=== PATIENT | female | born 1995 | race Caucasian/White ===

== ENCOUNTER 2019-09-23 20:54 | Emergency (ER) | payer OTHER, SELFPAY ==
[2019-09-23 20:58] VITALS: BP 114/84; PULSE 78; RESP 18; TEMP 37.2; O2SAT 100; BMI 21.9
[2019-09-23] MEDS: sodium chloride 0.9% 1,000 ML 100 ML IV (21:19)
[2019-09-23] MEDS: ondansetron 2 mg/ML SDV 2 mL 4 MG IVP (21:19)
[2019-09-23 21:20] VITALS: RESP 18; O2SAT 99
[2019-09-23] MEDS: morphine 4 mg/mL SDV 1 mL IVP (21:20)
--- NOTE | 2019-09-23 21:24 | ED_ITS ---
HPI - Abdominal Pain General: Chief Complaint: Abdominal Pain Stated Complaint: LOWER ABD PAIN Time Seen by Provider: 09/23/19 21:01 Source: patient Mode of arrival: ambulatory Limitations: no limitations History of Present Illness: HPI narrative: Patient is a 24-year-old female who presents to ED today with complaints of right-sided abdominal pain. Patient tells me pain began very abruptly in her right side and seems to radiate to her right flank. Patient tells me she had taken a test earlier today and it was positive. Patient states LMP was approximately 3 to 4 weeks ago. She reports having a small amount of brown discharge but no bleeding. She does not describe the pain as low in her pelvis. No cramping sensations. She states she did have 2 episodes of diarrhea. She is having nausea without vomiting. MD elicited complaint: abdominal pain Pertinent past history: none Onset (ago): hour(s) Pain Consistency: constant Location: R flank and Other (R abdomen) Severity: moderate Quality: stabbing and sharp Migration to: R flank Exacerbating factors: nothing Relieving factors: nothing Associated Symptoms: Reports diarrhea and nausea; Denies chills, coffee ground emesis, dysuria, fever(s), heartburn, hematochezia, hematemesis, melena, syncope and vomiting Review of Systems Const: Denies: fever, chills, body aches, fatigue or malaise Eyes: Denies: change in vision or blurry vision Card: Denies: chest pain, palpitations, irregular heart rhythm, lightheadedness, syncope or shortness of breath on exertion Resp: Denies: shortness of breath, productive cough or pain on inspiration GI: Reports: abdominal pain, nausea and diarrhea; Denies: vomiting, vomiting blood, coffee grounds in vomit, difficulty swallowing, heartburn/indigestion, blood in stool, black tarry stool, mucus in stool, white/light colored stool or fatty stool : Reports: flank pain and vaginal discharge (brown discharge); Denies: difficulty urinating, painful urination, urinary frequency, urinary urgency, urinary hesitancy, genital lesion, genital itching, vaginal odor or pelvic pain Musc: Reports: back pain (R flank); Denies: neck pain or joint pain Skin/Breast: Denies: rash Neuro: Denies: headache, numbness in extremities, weakness in extremities or changes in sensation PFSH ED PFSH: Social History Smoking and tobacco status: former smoker Alcohol intake: never Physical Exam Const: COMMON NORMALS: average body habitus, oriented x3, no limitations, healthy appearing, alert and well nourished GENERAL APPEARANCE: in distress (appears uncomfortable) HENMT: COMMON NORMALS: normocephalic and head/scalp atraumatic HEAD & SCALP: normocephalic and atraumatic Resp: COMMON NORMALS: normal respiratory effort and clear to auscultation bilaterally AUSCULTATION: clear to auscultation bilaterally Cardio: COMMON NORMALS: regular rate and regular rhythm RATE: regular rate RHYTHM: regular rhythm GI: COMMON NORMALS: normal to inspection, nondistended, normoactive bowel sounds, soft to palpation, no hepatosplenomegaly and no masses AUSCULTATION: Yes normoactive bowel sounds PALPATION: Yes soft, Yes tender (R sided (between RUQ, RLQ); R flank pain) and Yes no hepatosplenomegaly : BLADDER/KIDNEY EXAM: Yes CVA tenderness on the right OTHER: she has no pain with palpation of her lower abdomen/pelvis Back/Pelvis: GENERAL BACK: Yes CVA tenderness Extremity: COMMON NORMALS: normal to inspection Neuro: COMMON NORMALS: oriented x3 SENSORIUM/ORIENTATION: Yes alert Skin: COMMON NORMALS: no rashes or lesions noted GENERAL SKIN EXAM: no rashes or lesions noted Course Vital Signs: Vital signs: Vital Signs Temperature 98.9 F 09/23/19 20:58 Pulse Rate 76 09/23/19 22:19 Respiratory Rate 16 09/23/19 22:19 Blood Pressure 112/64 09/23/19 22:19 Pulse Oximetry 100 09/23/19 22:19 MDM - Abdominal Pain MDM Narrative: Medical decision making narrative: Patient's physical exam is positive for pain about her right flank region and right abdomen. She is not having any lower abdominal or pelvic pain at this time. She does complain of a little bit of brown discharge. Patient was cathed for urine which shows no infection but does have hematuria which would be consistent with a nephro or ureterolithiasis which is what I suspect patient has. On her ultrasound there was no right-sided hydronephrosis. The remainder of her abdominal ultrasound was normal. is confirmed today. hCG is slightly over 200 corresponding to a 3 to 4-week gestation. Patient is too early to see anything via ultrasound. I will repeat patient's hCG in 48 hours via outpatient lab work. Case management was contacted to set patient up with the women's health clinic. Strict return to ED precautions given worsening pain or fevers. She was given urinary strainer. I did explain to patient that an ectopic could not definitively be ruled out although this is low on my differential based on her exam. Discussed signs and symptoms that would prompt a return to ED visit. Lab Data: Labs: Lab Results 09/23/19 09/23/19 09/23/19 Range/Units 21:10 21:15 21:15 WBC 7.5 (4.0-10.0) 10^3/ uL RBC 4.68 (4.1-5.3) 10^6/u L Hgb 13.9 (11.5-15.3) g/dL Hct 41.6 (37.0-47.0) % MCV 88.9 (81-99) fL MCH 29.7 (28.0-34.0) pg MCHC 33.4 (30.0-36.0) g/dL RDW 11.9 L (12.1-15.1) % Plt Count 166 (130-400) 10^3/c mm MPV 13.1 H (7.4-10.4) fL Neut % (Auto) 69.9 % Lymph % (Auto) 23.7 % [place] % (Auto) 4.1 % Eos % (Auto) 1.5 % Baso % (Auto) 0.5 % Neut # (Auto) 5.3 (1.8-7.7) 10^3/u L Lymph # (Auto) 1.8 (0.8-4.8) 10^3/u L [place] # (Auto) 0.3 (0.2-0.9) 10^3/u L Eos # (Auto) 0.1 (0.0-0.8) 10^3/u L Baso # (Auto) 0.0 (0.0-0.1) 10^3/u L Nucleated RBC % (a uto) 0 % Nucleated RBCs # 0.0 /100WBC Sodium 138 (136-145) mmol/L Potassium 3.9 (3.5-5.1) mmol/L Chloride 102 (98-107) mmol/L Carbon Dioxide 22 (22-29) mmol/L Anion Gap 17.9 (5-19) BUN 7 (6-20) mg/dL Creatinine 0.6 (0.5-0.9) mg/dL GFR Calculation 122.8 (90-130) mL/min Glucose 103 (65-115) mg/dL Calculated Osmolal ity 282 L (285-295) mOsm/k g Calcium 10.1 (8.5-10.5) mg/dL Magnesium 2.4 H (1.7-2.3) mg/dL Total Bilirubin 1.9 H (0.15-1.2) mg/dL AST 18 (0-32) U/L ALT 9 (0-33) U/L Alkaline Phosphata se 58 (35-105) IU/L Total Protein 8.0 (6.6-8.7) g/dL Albumin 5.1 (3.5-5.2) g/dL Globulin 2.9 (1.3-4.6) g/dL Lipase 57 (13-60) U/L HCG, Qual (Negative) Ser , Kristie i-Qnt mIU/mL Urine Color Cancelled Urine Appearance Cancelled Urine pH Cancelled Ur Specific Gravit y Cancelled Urine Protein Cancelled Urine Glucose (UA) Cancelled Urine Ketones Cancelled Urine Blood Cancelled Urine Nitrate Cancelled Urine Bilirubin Cancelled Prot Sulfosalicyli c Acd Cancelled Urine Urobilinogen Cancelled Ur Leukocyte Danelle ase Cancelled Urine RBC Cancelled Urine WBC Cancelled Ur Squamous Epith Cells Cancelled Ur Transition Epit h Cell Cancelled Ur Renal Epithelia l Cell Cancelled Calcium Oxalate Cr ystal Cancelled Uric Acid Crystals Cancelled Triple Phos Shruthi ls Cancelled Other Crystals Cancelled Amorphous Sediment Cancelled Urine Bacteria Cancelled Hyaline Casts Cancelled Fine Granular Cast s Cancelled Coarse Granular Ca sts Cancelled RBC Casts Cancelled Other Casts Cancelled Urine Mucus Cancelled Urine Trichomonas Cancelled Urine Yeast Cancelled Urine Sperm Cancelled Ur Oval Fat Bodies Cancelled 09/23/19 09/23/19 09/23/19 Range/Units 21:15 21:15 21:45 WBC (4.0-10.0) 10^3/ uL RBC (4.1-5.3) 10^6/u L Hgb (11.5-15.3) g/dL Hct (37.0-47.0) % MCV (81-99) fL MCH (28.0-34.0) pg MCHC (30.0-36.0) g/dL RDW (12.1-15.1) % Plt Count (130-400) 10^3/c mm MPV (7.4-10.4) fL Neut % (Auto) % Lymph % (Auto) % [place] % (Auto) % Eos % (Auto) % Baso % (Auto) % Neut # (Auto) (1.8-7.7) 10^3/u L Lymph # (Auto) (0.8-4.8) 10^3/u L [place] # (Auto) (0.2-0.9) 10^3/u L Eos # (Auto) (0.0-0.8) 10^3/u L Baso # (Auto) (0.0-0.1) 10^3/u L Nucleated RBC % (a uto) % Nucleated RBCs # /100WBC Sodium (136-145) mmol/L Potassium (3.5-5.1) mmol/L Chloride (98-107) mmol/L Carbon Dioxide (22-29) mmol/L Anion Gap (5-19) BUN (6-20) mg/dL Creatinine (0.5-0.9) mg/dL GFR Calculation (90-130) mL/min Glucose (65-115) mg/dL Calculated Osmolal ity (285-295) mOsm/k g Calcium (8.5-10.5) mg/dL Magnesium (1.7-2.3) mg/dL Total Bilirubin (0.15-1.2) mg/dL AST (0-32) U/L ALT (0-33) U/L Alkaline Phosphata se (35-105) IU/L Total Protein (6.6-8.7) g/dL Albumin (3.5-5.2) g/dL Globulin (1.3-4.6) g/dL Lipase (13-60) U/L HCG, Qual Positive H (Negative) Ser , Kristie i-Qnt 261.90 mIU/mL Urine Color Colorless Urine Appearance Sl hazy Urine pH 7 Ur Specific Gravit y 1.010 Urine Protein Neg Urine Glucose (UA) Norm Urine Ketones Negative Urine Blood 2+ H Urine Nitrate Negative Urine Bilirubin Neg Prot Sulfosalicyli c Acd Urine Urobilinogen Norm Ur Leukocyte Danelle ase Negative Urine RBC Rare Urine WBC Rare Ur Squamous Epith Cells Rare Ur Transition Epit h Cell Ur Renal Epithelia l Cell Calcium Oxalate Cr ystal Uric Acid Crystals Triple Phos Shruthi ls Other Crystals Amorphous Sediment Urine Bacteria Trace Hyaline Casts Fine Granular Cast s Coarse Granular Ca sts RBC Casts Other Casts Urine Mucus Urine Trichomonas Urine Yeast Urine Sperm Ur Oval Fat Bodies Imaging Data ^: US abdomen : My impression: 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, normal gallbladder, remainder of pts abdomen appears normal; too early to detect anything at this time Discharge Plan Discharge Patient Disposition: Home, Self-Care Clinical Impression: Ureterolithiasis during in first trimester Qualifiers: Weeks of gestation: less than 8 weeks Qualified Code(s): Z3A.01 - Less than 8 weeks gestation of Condition: Stable Prescriptions: No Action No Known Home Medications RF: 0 Discharge Orders: Discharge Order (Routine); Ordered 09/23/19 Ordered By: Emani Reyes Referrals: Dionicio Mohamud DO [Family Provider] - Lexi Nichols FNP [Primary Care Provider] - Activity Restrictions/Additional Instructions: As discussed you may strain your urine in hopes of catching the probable kidney stone. You need to return to the emergency department for worsening or uncontrollable pain, severe lower abdominal/pelvic cramping, vaginal bleeding, fevers greater than 100.4, or any other concerns you may have. We will have case management work on getting you an appointment with the women's health clinic. I have written you outpatient orders for repeat hCG in 48 hours. Coding Level of Care Code ED Flight Steward for Chg Fwd Exam Comprehensive
[2019-09-23 21:26] LABS: Basophils % 0.5 %; Eosinophils # 0.1 10^3/uL (0.0-0.8); Eosinophils % 1.5 %; Hematocrit 41.6 % (37.0-47.0); Hemoglobin 13.9 g/dL (11.5-15.3); Lymphocytes # 1.8 10^3/uL (0.8-4.8); Lymphocytes % 23.7 %; Mean Corpuscular HGB Conc 33.4 g/dL (30.0-36.0); Mean Corpuscular Hemoglobin 29.7 pg (28.0-34.0); Mean Corpuscular Volume 88.9 fL (81-99); Mean Platelet Volume 13.1 fL (7.4-10.4); Monocytes # 0.3 10^3/uL (0.2-0.9); Monocytes % 4.1 %; Neutrophils # 5.3 10^3/uL (1.8-7.7); Neutrophils % 69.9 %; Nucleated Red Blood Cells % 0 %; Platelet Count 166 10^3/cmm (130-400); Red Blood Count 4.68 10^6/uL (4.1-5.3); Red Cell Distribution Width 11.9 % (12.1-15.1); White Blood Count 7.5 10^3/uL (4.0-10.0)
[2019-09-23 21:47] VITALS: BP 107/72; PULSE 72; RESP 16; O2SAT 100
[2019-09-23 21:47] LABS: HCG, Serum Qual Positive (Negative)
[2019-09-23 21:48] LABS: Alanine Aminotransferase 9 U/L (0-33); Albumin Level 5.1 g/dL (3.5-5.2); Alkaline Phosphatase 58 IU/L (35-105); Anion Gap 17.9 (5-19); Aspartate Amino Transferase 18 U/L (0-32); Blood Urea Nitrogen 7 mg/dL (6-20); Calcium 10.1 mg/dL (8.5-10.5); Carbon Dioxide 22 mmol/L (22-29); Chloride 102 mmol/L (98-107); Globulin 2.9 g/dL (1.3-4.6); Glomerular Filtration Rate 122.8 mL/min (90-130); Glucose 103 mg/dL (65-115); Lipase 57 U/L (13-60); Magnesium 2.4 mg/dL (1.7-2.3); Osmolality Calculated 282 mOsm/kg (285-295); Potassium 3.9 mmol/L (3.5-5.1); Sodium 138 mmol/L (136-145); Total Bilirubin 1.9 mg/dL (0.15-1.2)
--- NOTE | 2019-09-23 22:17 | US_ITS ---
WS: [id number] ABDOMINAL ULTRASOUND REASON FOR EXAM: R sided abdominal pain; possible kidney stone; pt TECHNIQUE: Grayscale and Doppler ultrasound examination of the abdomen. FINDINGS: Pancreas: Within normal limits. Abdominal aorta and IVC: Within normal limits. Liver: Liver measures 9.6 cm in length. Normal hepatopedal flow Gallbladder: Gallbladder wall thickness measures 0.1 cm. No stones Left kidney: Left kidney measures 10.8 cm x 5.0 cm x 4.2 cm. No hydronephrosis or stones. Right kidney: Right kidney measures 10.4 cm x 3.9 cm x 3.7 cm. No hydronephrosis or stones. Spleen: Spleen measures 12.3 centimeters US/US abdomen complete* [id number] IMPRESSION: Normal right upper quadrant ultrasound and normal abdominal survey.
[2019-09-23 22:19] VITALS: BP 112/64; PULSE 76; RESP 16; O2SAT 100
[2019-09-23 22:53] LABS: Slide Review Slide Review Perform
[2019-09-23 23:16] LABS: Add Urine Microscopic? YES; Bilirubin Urine Neg (NEGATIVE); Blood Urine 2+ (Negative); Glucose Urine UA Norm (Normal); Ketones Urine Negative (Negative); Leukocyte Esterase Urine Negative (Negative); Nitrate Urine Negative (Negative); Protein Urine Neg (Negative); Urine Appearance SL Hazy (CLEAR); Urine Color Colorless (Yellow); Urobilinogen Urine Norm (Negative); pH Urine 7 (5-7)
[2019-09-23 23:17] LABS: Bacteria Urine TRACE; RBC Urine RARE /hpf (0-2); Squamous Epithelial Cell Urine RARE (0-5); WBC Urine RARE /hpf (0-5)
[2019-09-24] MEDS: metoclopramide 10 mg Tablet 5 MG PO (00:09)
[2019-09-24] MEDS: HYDROcodone-acetaminophen 5-325 mg Tablet 2 TAB PO (00:09)
[2019-09-24 00:15] VITALS: BP 122/68; PULSE 68; RESP 16; O2SAT 99
--- NOTE | 2019-09-24 13:15 | DCPLANNER ---
communications station manager had message to schedule a follow up appointment for patient with [facility]. communications station manager called [facility], spoke with Estela, gave clinic patients information. communications station manager was told that patients information would be printed and reviewed. Clinic will call heel caser and patient with appointment information.
--- NOTE | 2019-09-26 12:36 | DCPLANNER ---
Patient had a follow up appointment for labs scheduled for 09.26.19, and patient did attend the appointment for lab. A follow up appointment will be scheduled by clinic, and clinic will call patient with appointment information.
== END 2019-09-24 00:19 | disposition home or self-care (01) ==
PROVIDERS: Emergency Medicine; Emergency Provider Physician Assistant; Family Provider Electrodiagnostic Medicine; PCP Nurse Practitioner Family
DX: O26.891 Other specified pregnancy related conditions, first trimester (principal); N20.1 Calculus of ureter; Z3A.01 Less than 8 weeks gestation of pregnancy; Z87.891 Personal history of nicotine dependence
CPT/HCPCS: 12345; 51701; 76700; 80053; 81001; 83690; 83735; 84702; 84703; 85025; 96360; 96361; 96374; 96375; 99283; J2270; J2405; J7030; J8597

== ENCOUNTER → 2019-09-26 10:20 | Outpatient (BNVA) | payer OTHER, SELFPAY | PROVIDERS: Family Provider Electrodiagnostic Medicine; PCP Nurse Practitioner Family; Visit Provider Obstetrics & Gynecology | DX: Z34.90 Encounter for supervision of normal pregnancy, unspecified, unspecified trimester (principal) | CPT/HCPCS: 84702 ==

== ENCOUNTER → 2019-09-30 09:09 | Outpatient (BNVA) | payer OTHER, SELFPAY | PROVIDERS: Family Provider Electrodiagnostic Medicine; PCP Nurse Practitioner Family; Visit Provider Obstetrics & Gynecology | DX: O20.0 Threatened abortion (principal) | CPT/HCPCS: 84702 ==

== ENCOUNTER → 2019-10-02 09:37 | Outpatient (BNVA) | payer OTHER, SELFPAY | PROVIDERS: Family Provider Electrodiagnostic Medicine; PCP Nurse Practitioner Family; Visit Provider Obstetrics & Gynecology | DX: O20.0 Threatened abortion (principal) | CPT/HCPCS: 76817; 84702 ==

== ENCOUNTER → 2019-10-03 15:02 | Outpatient (BNVA) | payer OTHER, SELFPAY | PROVIDERS: Family Provider Electrodiagnostic Medicine; PCP Nurse Practitioner Family; Visit Provider Obstetrics & Gynecology | DX: O20.0 Threatened abortion (principal) | CPT/HCPCS: 84702; 85027 ==

== ENCOUNTER → 2019-10-07 08:05 | Outpatient (BNVA) | payer OTHER, SELFPAY | PROVIDERS: Family Provider Electrodiagnostic Medicine; PCP Nurse Practitioner Family; Visit Provider Obstetrics & Gynecology | DX: O20.0 Threatened abortion (principal) | CPT/HCPCS: 84702 ==

== ENCOUNTER → 2019-10-09 08:59 | Outpatient (BNVA) | payer OTHER, SELFPAY | PROVIDERS: Family Provider Electrodiagnostic Medicine; PCP Nurse Practitioner Family; Visit Provider Obstetrics & Gynecology | DX: O20.0 Threatened abortion (principal) | CPT/HCPCS: 84702 ==

== ENCOUNTER → 2019-10-11 08:03 | Outpatient (BNVA) | payer OTHER, SELFPAY | PROVIDERS: Family Provider Electrodiagnostic Medicine; PCP Nurse Practitioner Family; Visit Provider Obstetrics & Gynecology | DX: O20.0 Threatened abortion (principal) | CPT/HCPCS: 76817; 84702 ==

== ENCOUNTER → 2019-10-18 08:20 | Outpatient (BNVA) | payer OTHER, SELFPAY | PROVIDERS: Family Provider Electrodiagnostic Medicine; PCP Nurse Practitioner Family; Visit Provider Obstetrics & Gynecology | DX: O20.0 Threatened abortion (principal) | CPT/HCPCS: 84702 ==

== ENCOUNTER → 2019-11-07 12:51 | Outpatient (BNVA) | payer OTHER, SELFPAY | PROVIDERS: Family Provider Electrodiagnostic Medicine; PCP Nurse Practitioner Family; Visit Provider Obstetrics & Gynecology | DX: Z30.017 Encounter for initial prescription of implantable subdermal contraceptive | CPT/HCPCS: 81025 ==

== ENCOUNTER → 2020-01-16 12:34 | Outpatient (BNVA) | payer OTHER, SELFPAY | PROVIDERS: Family Provider Electrodiagnostic Medicine; PCP Nurse Practitioner Family; Visit Provider Obstetrics & Gynecology | DX: R87.610 Atypical squamous cells of undetermined significance on cytologic smear of cervix (ASC-US) (principal) | CPT/HCPCS: 81025; 88305 ==

== ENCOUNTER → 2020-04-06 10:31 | Outpatient (BNVA) | payer OTHER, SELFPAY | PROVIDERS: Family Provider Electrodiagnostic Medicine; PCP Nurse Practitioner Family; Visit Provider Nurse Practitioner Family | DX: Z20.828 Contact with and (suspected) exposure to other viral communicable diseases (principal) | CPT/HCPCS: 87635 ==

== ENCOUNTER 2020-06-15 13:01 | Emergency (ER) | payer OTHER, SELFPAY ==
[2020-06-15 13:35] VITALS: BP 115/73; PULSE 64; RESP 14; TEMP 36.6; O2SAT 99; BMI 20.3
--- NOTE | 2020-06-15 14:33 | ED_ITS ---
Documented by User: SEGUNDO Ricks 06/15/20 14:34 HPI - Abdominal Pain General: Chief Complaint: Abdominal Pain Stated Complaint: N/V 4 DAYS, CANNOT EAT OR DRINK Time Seen by Provider: 06/15/20 14:21 History of Present Illness: HPI narrative: Patient have abdominal pain and vomiting after eating occurs about 30 minutes an hour after eating this is gone on for the last 4 days. MD elicited complaint: abdominal pain Onset (ago): day(s) Pain Consistency: constant Quality: cramping, stabbing and aching Radiation: RUQ Exacerbating factors: eating Associated Symptoms: Reports nausea and vomiting; Denies chills and fever(s) Review of Systems Const: Denies: fever(s), chills or body aches Eyes: Denies: change in vision or blurry vision ENMT: Denies: throat pain or nasal congestion Card: Denies: chest pain or dyspnea on exertion Resp: Denies: dyspnea, productive cough or non-productive cough GI: Reports: abdominal pain, nausea and vomiting Musc: Denies: extremity pain Skin/Breast: Denies: rash Neuro: Denies: headache(s) Psych: Denies: anxiety or depression Alexis/Lymph: Denies: easy bruising PFSH ED PFSH: Medical History Atypical squamous cells of undetermined significance (ASCUS) on Papanicolaou smear of cervix Family History Family/Other Breast cancer, Onset Age: 50 maternal great aunt Colon cancer maternal great uncle Diabetes paternal Hypertension maternal aunt Thyroid cancer paternal uncle Father Stroke Heart disease Hypertension Grandfather Heart disease paternal Diabetes paternal Hypertension maternal Grandmother Hypertension maternal Social History Smoking and tobacco status: former smoker Quit status (tobacco): has quit using tobacco Year quit tobacco: 08/2019 Alcohol intake: current Alcohol intake frequency: holidays/special occasions only Alcohol type: beer Other details last substance use: not since finding out she is Physical Exam Const: COMMON NORMALS: no acute distress, average body habitus and patient oriented x3 HENMT: COMMON NORMALS: normocephalic HEAD & SCALP: normal to inspection and normocephalic FACE & SINUS: normal facial exam Eye: COMMON NORMALS: conjunctivae normal GENERAL EYE: appearance normal, both eyes and all related structures CONJUNCTIVA: Yes conjunctivae normal Neck/C-Spine: COMMON NORMALS: no JVD Chest: COMMONS NORMALS: normal inspection of the chest Resp: COMMON NORMALS: normal respiratory effort and clear to auscultation bilaterally AUSCULTATION: clear to auscultation bilaterally Cardio: COMMON NORMALS: no JVD, regular rate and regular rhythm RATE: regular rate RHYTHM: regular rhythm GI: COMMON NORMALS: Normal to inspection, nondistended, normoactive bowel sounds present PALPATION: Yes Tenderness to palpation present (GI) Details: RUQ Extremity: COMMON NORMALS: normal to inspection and full ROM Neuro: COMMON NORMALS: patient oriented x3 Course Vital Signs: Vital signs: Vital Signs Temperature 97.9 F 06/15/20 13:35 Pulse Rate 66 06/15/20 18:47 Respiratory Rate 14 06/15/20 18:47 Blood Pressure 112/67 06/15/20 18:47 Pulse Oximetry 99 06/15/20 18:47 MDM - Abdominal Pain Lab Data: Labs: Lab Results 06/15/20 06/15/20 06/15/20 Range/Units 14:35 14:35 14:41 WBC 4.7 (4.0-10.0) 10^3/ uL RBC 4.28 (4.1-5.3) 10^6/u L Hgb 12.8 (11.5-15.3) g/dL Hct 39.0 (37.0-47.0) % MCV 91.1 (81-99) fL MCH 29.9 (28.0-34.0) pg MCHC 32.8 (30.0-36.0) g/dL RDW 12.2 (12.1-15.1) % Plt Count 140 (130-400) 10^3/c mm MPV 12.5 H (7.4-10.4) fL Neut % (Auto) 53.9 % Lymph % (Auto) 39.1 % [place] % (Auto) 4.7 % Eos % (Auto) 1.5 % Baso % (Auto) 0.6 % Neut # (Auto) 2.54 (1.8-7.7) 10^3/u L Lymph # (Auto) 1.8 (0.8-4.8) 10^3/u L [place] # (Auto) 0.2 (0.2-0.9) 10^3/u L Eos # (Auto) 0.1 (0.0-0.8) 10^3/u L Baso # (Auto) 0.0 (0.0-0.1) 10^3/u L Nucleated RBC % (a uto) 0 % Nucleated RBCs # 0.0 /100WBC Sodium (136-145) mmol/L Potassium (3.5-5.1) mmol/L Chloride (98-107) mmol/L Carbon Dioxide (22-29) mmol/L Anion Gap (5-19) BUN (6-20) mg/dL Creatinine (0.5-0.9) mg/dL GFR Calculation (90-130) mL/min Glucose (65-115) mg/dL Calculated Osmolal ity (285-295) mOsm/k g Calcium (8.5-10.5) mg/dL Total Bilirubin (0.15-1.2) mg/dL AST (0-32) U/L ALT (0-33) U/L Alkaline Phosphata se (35-105) IU/L Total Protein (6.6-8.7) g/dL Albumin (3.5-5.2) g/dL Globulin (1.3-4.6) g/dL Lipase (13-60) U/L HCG, Qual Negative (Negative) Urine Color Yellow (Yellow) Urine Appearance Clear (CLEAR) Urine pH 5 (5-7) Ur Specific Gravit y 1.025 (1.005-1.030) Urine Protein Neg (Negative) Urine Glucose (UA) Norm (Normal) Urine Ketones Negative (Negative) Urine Blood Neg (Negative) Urine Nitrate Negative (Negative) Urine Bilirubin Neg (Negative) Urine Urobilinogen 4 H (Negative) mg/dL Ur Leukocyte Danelle ase Negative (Negative) 06/15/20 Range/Units 14:41 WBC (4.0-10.0) 10^3/ uL RBC (4.1-5.3) 10^6/u L Hgb (11.5-15.3) g/dL Hct (37.0-47.0) % MCV (81-99) fL MCH (28.0-34.0) pg MCHC (30.0-36.0) g/dL RDW (12.1-15.1) % Plt Count (130-400) 10^3/c mm MPV (7.4-10.4) fL Neut % (Auto) % Lymph % (Auto) % [place] % (Auto) % Eos % (Auto) % Baso % (Auto) % Neut # (Auto) (1.8-7.7) 10^3/u L Lymph # (Auto) (0.8-4.8) 10^3/u L [place] # (Auto) (0.2-0.9) 10^3/u L Eos # (Auto) (0.0-0.8) 10^3/u L Baso # (Auto) (0.0-0.1) 10^3/u L Nucleated RBC % (a uto) % Nucleated RBCs # /100WBC Sodium 138 (136-145) mmol/L Potassium 3.6 (3.5-5.1) mmol/L Chloride 103 (98-107) mmol/L Carbon Dioxide 27 (22-29) mmol/L Anion Gap 11.6 (5-19) BUN 7 (6-20) mg/dL Creatinine 0.6 (0.5-0.9) mg/dL GFR Calculation 121.8 (90-130) mL/min Glucose 87 (65-115) mg/dL Calculated Osmolal ity 283 L (285-295) mOsm/k g Calcium 11.9 H (8.5-10.5) mg/dL Total Bilirubin 1.7 H (0.15-1.2) mg/dL AST 15 (0-32) U/L ALT 11 (0-33) U/L Alkaline Phosphata se 56 (35-105) IU/L Total Protein 7.1 (6.6-8.7) g/dL Albumin 4.5 (3.5-5.2) g/dL Globulin 2.6 (1.3-4.6) g/dL Lipase 75 H (13-60) U/L HCG, Qual (Negative) Urine Color (Yellow) Urine Appearance (CLEAR) Urine pH (5-7) Ur Specific Gravit y (1.005-1.030) Urine Protein (Negative) Urine Glucose (UA) (Normal) Urine Ketones (Negative) Urine Blood (Negative) Urine Nitrate (Negative) Urine Bilirubin (Negative) Urine Urobilinogen (Negative) mg/dL Ur Leukocyte Danelle ase (Negative) Discharge Plan Discharge Patient Disposition: Home Clinical Impression: Abdominal pain Qualifiers: Abdominal location: epigastric Qualified Code(s): R10.13 - Epigastric pain Condition: Stable Prescriptions: No Action venlafaxine 150 mg capsule,extended release 24hr 150 mg PO DAILY@0800 RF: 0 Discharge Orders: Discharge ED (Routine); Ordered 06/15/20 Ordered By: Mychal Gillis Referrals: Lexi Nichols FNP [Primary Care Provider] - Discharge Diet: Advance as tolerated Discharge Activity: Increase activity as tolerated Patient Instructions: Abdominal Pain (ED) Activity Restrictions/Additional Instructions: Follow-up with medical provider as directed in 7 to 10 days for reevaluation. Case management will be contacting you in the next several days to set up an appointment with general surgeon. Take [id number] Tylenol or ibuprofen for any pain. Start your diet with clear liquids and then advance as tolerated. Make sure you are drinking plenty of fluids and staying hydrated. Return to the ER or your medical provider if condition worsens. Please read and understand discharge instructions. If any questions, please ask. Sign Out Sign Out Data: Patient Sign Out occurred on 06/15/20 at 17:04. Patient's care was discussed, and care was transferred from to ISREAL Darden. Coding Level of Care Code ED Habitat Management Coordinator for Chg Fwd Exam Comprehensive Documented by User: ISREAL Darden 06/15/20 23:38 HPI - Abdominal Pain General: Chief Complaint: Abdominal Pain Stated Complaint: N/V 4 DAYS, CANNOT EAT OR DRINK Time Seen by Provider: 06/15/20 14:21 PFSH ED PFSH: Medical History Atypical squamous cells of undetermined significance (ASCUS) on Papanicolaou smear of cervix Family History Family/Other Breast cancer, Onset Age: 50 maternal great aunt Colon cancer maternal great uncle Diabetes paternal Hypertension maternal aunt Thyroid cancer paternal uncle Father Stroke Heart disease Hypertension Grandfather Heart disease paternal Diabetes paternal Hypertension maternal Grandmother Hypertension maternal Social History Smoking and tobacco status: former smoker Quit status (tobacco): has quit using tobacco Year quit tobacco: 08/2019 Alcohol intake: current Alcohol intake frequency: holidays/special occasions only Alcohol type: beer Other details last substance use: not since finding out she is Course Reevaluation(s): Reevaluation #1: Went in discussed with patient the CT report and lab findings. I told patient I will set her up with general surgery referral. Patient does not want any pain meds or nausea meds to go home on. She says currently her nausea is minimal and her pain is minimal. Patient appears healthy for discharge and I told her to return to the ED if she has any worsening symptoms. Time: 18:11 Vital Signs: Vital signs: Vital Signs Temperature 97.9 F 06/15/20 13:35 Pulse Rate 66 06/15/20 18:47 Respiratory Rate 14 06/15/20 18:47 Blood Pressure 112/67 06/15/20 18:47 Pulse Oximetry 99 06/15/20 18:47 MDM - Abdominal Pain MDM Narrative: Medical decision making narrative: I took over patient care from Jhonathan Corbin is at 5 PM. He had ordered all labs and CT of abdomen. Labs and imaging pending when I took over. Patient is a 25-year-old female comes to the ED with right upper quadrant abdominal pain. Patient symptoms are mild and does not want any pain meds or nausea meds while here in the ED. CBC was unremarkable. Lipase 75, CMP was unremarkable. hCG negative. CT of abdomen showed no acute findings. Patient was discharged diagnosed with abdominal pain of unknown origin. Patient says she has been having this pain chronically on and off for the past couple months. Patient was stable and healthy for discharge. I placed an order with case management for patient be referred to general surgeon for evaluation. Return to ED precautions given. Follow-up with PCP in 7 to 10 days for reevaluation. Patient understood agree with plan. Lab Data: Attestation: I reviewed the patient's lab results. Labs: Lab Results 06/15/20 06/15/20 06/15/20 Range/Units 14:35 14:35 14:41 WBC 4.7 (4.0-10.0) 10^3/ uL RBC 4.28 (4.1-5.3) 10^6/u L Hgb 12.8 (11.5-15.3) g/dL Hct 39.0 (37.0-47.0) % MCV 91.1 (81-99) fL MCH 29.9 (28.0-34.0) pg MCHC 32.8 (30.0-36.0) g/dL RDW 12.2 (12.1-15.1) % Plt Count 140 (130-400) 10^3/c mm MPV 12.5 H (7.4-10.4) fL Neut % (Auto) 53.9 % Lymph % (Auto) 39.1 % [place] % (Auto) 4.7 % Eos % (Auto) 1.5 % Baso % (Auto) 0.6 % Neut # (Auto) 2.54 (1.8-7.7) 10^3/u L Lymph # (Auto) 1.8 (0.8-4.8) 10^3/u L [place] # (Auto) 0.2 (0.2-0.9) 10^3/u L Eos # (Auto) 0.1 (0.0-0.8) 10^3/u L Baso # (Auto) 0.0 (0.0-0.1) 10^3/u L Nucleated RBC % (a uto) 0 % Nucleated RBCs # 0.0 /100WBC Sodium (136-145) mmol/L Potassium (3.5-5.1) mmol/L Chloride (98-107) mmol/L Carbon Dioxide (22-29) mmol/L Anion Gap (5-19) BUN (6-20) mg/dL Creatinine (0.5-0.9) mg/dL GFR Calculation (90-130) mL/min Glucose (65-115) mg/dL Calculated Osmolal ity (285-295) mOsm/k g Calcium (8.5-10.5) mg/dL Total Bilirubin (0.15-1.2) mg/dL AST (0-32) U/L ALT (0-33) U/L Alkaline Phosphata se (35-105) IU/L Total Protein (6.6-8.7) g/dL Albumin (3.5-5.2) g/dL Globulin (1.3-4.6) g/dL Lipase (13-60) U/L HCG, Qual Negative (Negative) Urine Color Yellow (Yellow) Urine Appearance Clear (CLEAR) Urine pH 5 (5-7) Ur Specific Gravit y 1.025 (1.005-1.030) Urine Protein Neg (Negative) Urine Glucose (UA) Norm (Normal) Urine Ketones Negative (Negative) Urine Blood Neg (Negative) Urine Nitrate Negative (Negative) Urine Bilirubin Neg (Negative) Urine Urobilinogen 4 H (Negative) mg/dL Ur Leukocyte Danelle ase Negative (Negative) 06/15/20 Range/Units 14:41 WBC (4.0-10.0) 10^3/ uL RBC (4.1-5.3) 10^6/u L Hgb (11.5-15.3) g/dL Hct (37.0-47.0) % MCV (81-99) fL MCH (28.0-34.0) pg MCHC (30.0-36.0) g/dL RDW (12.1-15.1) % Plt Count (130-400) 10^3/c mm MPV (7.4-10.4) fL Neut % (Auto) % Lymph % (Auto) % [place] % (Auto) % Eos % (Auto) % Baso % (Auto) % Neut # (Auto) (1.8-7.7) 10^3/u L Lymph # (Auto) (0.8-4.8) 10^3/u L [place] # (Auto) (0.2-0.9) 10^3/u L Eos # (Auto) (0.0-0.8) 10^3/u L Baso # (Auto) (0.0-0.1) 10^3/u L Nucleated RBC % (a uto) % Nucleated RBCs # /100WBC Sodium 138 (136-145) mmol/L Potassium 3.6 (3.5-5.1) mmol/L Chloride 103 (98-107) mmol/L Carbon Dioxide 27 (22-29) mmol/L Anion Gap 11.6 (5-19) BUN 7 (6-20) mg/dL Creatinine 0.6 (0.5-0.9) mg/dL GFR Calculation 121.8 (90-130) mL/min Glucose 87 (65-115) mg/dL Calculated Osmolal ity 283 L (285-295) mOsm/k g Calcium 11.9 H (8.5-10.5) mg/dL Total Bilirubin 1.7 H (0.15-1.2) mg/dL AST 15 (0-32) U/L ALT 11 (0-33) U/L Alkaline Phosphata se 56 (35-105) IU/L Total Protein 7.1 (6.6-8.7) g/dL Albumin 4.5 (3.5-5.2) g/dL Globulin 2.6 (1.3-4.6) g/dL Lipase 75 H (13-60) U/L HCG, Qual (Negative) Urine Color (Yellow) Urine Appearance (CLEAR) Urine pH (5-7) Ur Specific Gravit y (1.005-1.030) Urine Protein (Negative) Urine Glucose (UA) (Normal) Urine Ketones (Negative) Urine Blood (Negative) Urine Nitrate (Negative) Urine Bilirubin (Negative) Urine Urobilinogen (Negative) mg/dL Ur Leukocyte Danelle ase (Negative) Imaging Data ^: CT Abd/Pel: Attestation: I personally reviewed and interpreted this imaging study as follows: My impression: [address] [address] [address] Scan Report Signed Patient: Batsheva Bernal Unit #: [id number] : 1995 Age/Sex: 25 / F ADM Date: 06/15/20 Loc: ER Room/Bed: Attending Dr: Ordering Provider/Ordering MD: Doyle Corbin Sr, [facility] Date of Service: 06/15/20 Procedure(s): CT abdomen pelvis w con* [id number] Accession Number(s): [id number] Report Number: [id number] PROCEDURE INFORMATION: Exam: CT Abdomen And Pelvis With Contrast Exam date and time: 06/15/2020 2:46 PM Age: 25 years old Clinical indication: Nausea and vomiting and other: Loss of appetite; Abdominal pain; Additional info: Abd pain TECHNIQUE: Imaging protocol: Computed tomography of the abdomen and pelvis with intravenous contrast. Radiation optimization: All CT scans at this facility use at least one of these dose optimization techniques: automated exposure control; mA and/or kV adjustment per patient size (includes targeted exams where dose is matched to clinical indication); or iterative reconstruction. Contrast material: OMNI 300; Contrast volume: 95 ml; Contrast route: INTRAVENOUS (IV); COMPARISON: CT abdomen pelvis w con* [id number] 10/26/2017 10:11 AM RADIATION DOSE METRICS: Total DLP (mGy-cm): 246.58 FINDINGS: Liver: Normal. No mass. Gallbladder and bile ducts: Normal. No calcified stones. No ductal dilation. Pancreas: Normal. No ductal dilation. Spleen: Normal. No splenomegaly. Adrenal glands: Normal. No mass. Kidneys and ureters: Normal. No hydronephrosis. Stomach and bowel: Unremarkable. No obstruction. No mucosal thickening. Appendix: The appendix is not visualized. No secondary signs of appendicitis. Intraperitoneal space: Unremarkable. No free air. No significant fluid collection. Vasculature: Unremarkable. No abdominal aortic aneurysm. Lymph nodes: Unremarkable. No enlarged lymph nodes. Urinary bladder: Unremarkable as visualized. Reproductive: Unremarkable as visualized. Bones/joints: Unremarkable. No acute fracture. Soft tissues: Unremarkable. Other findings: Navel jewelry. CT/CT abdomen pelvis w con* [id number] IMPRESSION: 1. No acute abnormality identified in the abdomen or pelvis. Radiation Dose CTDIVOL = (mGy): DLP = 246.58 (mGy-cm) Dictated By: Raoul Morton Signed By: Raoul Morton Signed Date/Time: 06/15/201756 DD/ 54 Discharge Plan Discharge Patient Disposition: Home Clinical Impression: Abdominal pain Qualifiers: Abdominal location: epigastric Qualified Code(s): R10.13 - Epigastric pain Condition: Stable Prescriptions: No Action venlafaxine 150 mg capsule,extended release 24hr 150 mg PO DAILY@0800 RF: 0 Discharge Orders: Discharge ED (Routine); Ordered 06/15/20 Ordered By: Mychal Gillis Referrals: Lexi Nichols FNP [Primary Care Provider] - Discharge Diet: Advance as tolerated Discharge Activity: Increase activity as tolerated Patient Instructions: Abdominal Pain (ED) Activity Restrictions/Additional Instructions: Follow-up with medical provider as directed in 7 to 10 days for reevaluation. Case management will be contacting you in the next several days to set up an appointment with general surgeon. Take [id number] Tylenol or ibuprofen for any pain. Start your diet with clear liquids and then advance as tolerated. Make sure you are drinking plenty of fluids and staying hydrated. Return to the ER or your medical provider if condition worsens. Please read and understand discharge instructions. If any questions, please ask. Sign Out Sign Out Data: Patient Sign Out occurred on 06/15/20 at 17:04. Patient's care was discussed, and care was transferred from to ISREAL Darden. Coding Level of Care Code ED Habitat Management Coordinator for Carol Anng Fwd Exam Comprehensive
[2020-06-15 14:42] VITALS: BP 120/76; PULSE 57; RESP 14; O2SAT 99
[2020-06-15 14:55] LABS: Add Urine Microscopic? NO
[2020-06-15 15:01] LABS: Basophils % 0.6 %; Eosinophils # 0.1 10^3/uL (0.0-0.8); Eosinophils % 1.5 %; Hemoglobin 12.8 g/dL (11.5-15.3); Lymphocytes # 1.8 10^3/uL (0.8-4.8); Lymphocytes % 39.1 %; Mean Corpuscular HGB Conc 32.8 g/dL (30.0-36.0); Mean Corpuscular Hemoglobin 29.9 pg (28.0-34.0); Mean Corpuscular Volume 91.1 fL (81-99); Mean Platelet Volume 12.5 fL (7.4-10.4); Monocytes # 0.2 10^3/uL (0.2-0.9); Monocytes % 4.7 %; Neutrophils # 2.54 10^3/uL (1.8-7.7); Neutrophils % 53.9 %; Nucleated Red Blood Cells % 0 %; Platelet Count 140 10^3/cmm (130-400); Red Blood Count 4.28 10^6/uL (4.1-5.3); Red Cell Distribution Width 12.2 % (12.1-15.1); White Blood Count 4.7 10^3/uL (4.0-10.0)
[2020-06-15 15:03] LABS: Bilirubin Urine Neg (Negative); Blood Urine Neg (Negative); Glucose Urine UA Norm (Normal); Ketones Urine Negative (Negative); Nitrate Urine Negative (Negative); Protein Urine Neg (Negative); Specific Gravity, Urine 1.025 (1.005-1.030); Urine Appearance Clear (CLEAR); Urine Color Yellow (Yellow); pH Urine 5 (5-7)
[2020-06-15 15:04] LABS: HCG Qualitative Urine. Negative (Negative); Leukocyte Esterase Urine Negative (Negative); Urobilinogen Urine 4 mg/dL (Negative)
[2020-06-15 15:24] LABS: Alanine Aminotransferase 11 U/L (0-33); Albumin Level 4.5 g/dL (3.5-5.2); Alkaline Phosphatase 56 IU/L (35-105); Anion Gap 11.6 (5-19); Aspartate Amino Transferase 15 U/L (0-32); Blood Urea Nitrogen 7 mg/dL (6-20); Carbon Dioxide 27 mmol/L (22-29); Chloride 103 mmol/L (98-107); Creatinine Clr Calc Pharmacy 137.0012; Globulin 2.6 g/dL (1.3-4.6); Glomerular Filtration Rate 121.8 mL/min (90-130); Glucose 87 mg/dL (65-115); Lipase 75 U/L (13-60); Osmolality Calculated 283 mOsm/kg (285-295); Potassium 3.6 mmol/L (3.5-5.1); Sodium 138 mmol/L (136-145); Total Bilirubin 1.7 mg/dL (0.15-1.2); Total Protein 7.1 g/dL (6.6-8.7)
[2020-06-15 16:23] VITALS: BP 109/63; PULSE 60; RESP 16; O2SAT 100
[2020-06-15 16:47] VITALS: BP 109/63; PULSE 63; RESP 12; O2SAT 100
[2020-06-15] MEDS: iohexol 300 mg/mL 100 mL Btl IV (17:35)
[2020-06-15 18:03] VITALS: BP 121/75; PULSE 74; RESP 18; O2SAT 100
[2020-06-15 18:47] VITALS: BP 112/67; PULSE 66; RESP 14; O2SAT 99
--- NOTE | 2020-06-16 11:11 | DCPLANNER ---
public works manager had message to schedule a follow up appointment for patient with general surgery. public works manager emailed patients information to both Elizabeth and Meenu at [facility] General Surgery. Patients information will be printed and reviewed. Clinic will call patient with appointment information.
[2020-06-17 17:30] LABS: Calcium 9.3 mg/dL (8.5-10.5)
--- NOTE | 2020-06-19 07:16 | DCPLANNER ---
Patient has a follow up appointment scheduled for Monday, June 22, 2020 at 1:[address] Melendez. Clinic will call patient with appointment information.
--- NOTE | 2020-08-12 12:14 | DCPLANNER ---
Patient had a follow up appointment scheduled for 07.02.[address] Melendez at general surgery - patient did not attend appointment.
== END 2020-06-15 18:48 | disposition home or self-care (01) ==
PROVIDERS: Nurse Practitioner Family; Emergency Provider Physician Assistant; PCP Nurse Practitioner Family
DX: R10.13 Epigastric pain (principal); Z87.891 Personal history of nicotine dependence
CPT/HCPCS: 12345; 74177; 80053; 81003; 81025; 83690; 85025; 99283; Q9967

== ENCOUNTER → 2020-06-30 12:52 | Outpatient (BNVA) | payer OTHER, SELFPAY | PROVIDERS: PCP Nurse Practitioner Family; Visit Provider Obstetrics & Gynecology | DX: Z32.00 Encounter for pregnancy test, result unknown (principal) | CPT/HCPCS: 81025 ==

== ENCOUNTER → 2020-08-04 08:50 | Outpatient (BNVA) | payer OTHER, BC, MEDICAID, SELFPAY | PROVIDERS: PCP Nurse Practitioner Family; Visit Provider Nurse Practitioner Women's Health | DX: O99.340 Other mental disorders complicating pregnancy, unspecified trimester (principal); F32.9 Major depressive disorder, single episode, unspecified; F41.9 Anxiety disorder, unspecified; Z87.59 Personal history of other complications of pregnancy, childbirth and the puerperium | CPT/HCPCS: 84315; 87086 ==

== ENCOUNTER → 2020-08-17 11:34 | Outpatient (BNVA) | payer OTHER, BC, MEDICAID, SELFPAY | PROVIDERS: PCP Nurse Practitioner Family; Visit Provider Obstetrics & Gynecology | DX: O99.320 Drug use complicating pregnancy, unspecified trimester (principal); Z3A.00 Weeks of gestation of pregnancy not specified | CPT/HCPCS: 80307; 84315; 87086 ==

== ENCOUNTER → 2020-08-18 12:26 | Outpatient (BNVA) | payer OTHER, BC, SELFPAY | PROVIDERS: PCP Nurse Practitioner Family; Visit Provider Obstetrics & Gynecology | DX: Z34.80 Encounter for supervision of other normal pregnancy, unspecified trimester (principal) | CPT/HCPCS: 80053; 84443; 85027; 86592; 86762; 86803; 86850; 86900; 87340 ==

== ENCOUNTER → 2020-08-31 10:13 | Outpatient (BNVA) | payer OTHER, BC, SELFPAY | PROVIDERS: PCP Nurse Practitioner Family; Visit Provider Obstetrics & Gynecology | DX: R87.610 Atypical squamous cells of undetermined significance on cytologic smear of cervix (ASC-US) (principal); I05.9 Rheumatic mitral valve disease, unspecified; O99.340 Other mental disorders complicating pregnancy, unspecified trimester; F32.9 Major depressive disorder, single episode, unspecified; D69.6 Thrombocytopenia, unspecified; O99.119 Other diseases of the blood and blood-forming organs and certain disorders involving the immune mechanism complicating pregnancy, unspecified trimester; Z3A.00 Weeks of gestation of pregnancy not specified | CPT/HCPCS: 84315; 87491; 87591; 88175 ==

== ENCOUNTER 2020-09-15 07:18 | Outpatient (CLI) | payer OTHER, BC, MEDICAID, SELFPAY ==
--- NOTE | 2020-09-15 07:23 | USCV_ITS ---
Dolores Batsheva Age: 25 Gender: F : 1995 Exam Date: 09/15/2020 07:43 Ordering Phys: Yulissa Logan MD Technologist: Jina Dennison [place] [facility] [place]: rheumatic mitral valve disease BP: / HR: 103 Rhythm: Sinus Technical Quality: Adequate MEASUREMENTS (Male / Female) Normal Values 2D ECHO LV Diastolic Diameter PLAX 5.1 cm 4.2 - 5.9 / 3.9 - 5.3 cm LV Systolic Diameter PLAX 3.0 cm LV Chamber Size 2.9 cm IVS Diastolic Thickness 0.8 cm 0.6 - 1.0 / 0.6 - 0.9 cm IVS Systolic Thickness 1.2 cm LVPW Diastolic Thickness 1.2 cm 0.6 - 1.0 / 0.6 - 0.9 cm LVPW Systolic Thickness 2.1 cm RV Chamber Size 2.4 cm LVOT Diameter 2.0 cm LV Ejection Fraction 2D Teich 71.9 % LV Ejection Fraction MOD 2C 36.6 % LV Ejection Fraction 2C AL 35.8 % LA Diameter 2.7 cm LA Width 2.6 cm LA Height 2.7 cm RA Width 2.0 cm RA Height 3.0 cm Aorta at Sinotubular Diameter 2.3 cm M-MODE LV Diastolic Diameter MM 4.9 cm 4.2 - 5.9 / 3.9 - 5.3 cm LV Systolic Diameter MM 3.0 cm LV Ejection Fraction MM Teich 70.4 % IVS Diastolic Thickness MM 0.7 cm 0.6 - 1.0 / 0.6 - 0.9 cm IVS Systolic Thickness MM 1.0 cm LVPW Diastolic Thickness MM 0.8 cm 0.6 - 1.0 / 0.6 - 0.9 cm LVPW Systolic Thickness MM 1.3 cm Aortic Annulus Diameter 2.4 cm LA Ao Ratio MM 1.1 MV E Point Septal Separation 1.0 cm DOPPLER AV Peak Velocity 137.0 cm/s LVOT Peak Velocity 108.0 cm/s AV Area Cont Eq vti 3.0 cm squared AV Area Cont Eq pk 2.6 cm squared MV Area PHT 2.7 cm squared Mitral E to A Ratio 2.1 MV E' Velocity 46.5 cm/s Mitral E to MV E' Ratio 5.2 Mitral E to LV E' Lateral Ratio 4.8 Mitral E to LV E' Septal Ratio 5.8 TR Peak Velocity 185.7 cm/s TR Peak Gradient 13.8 mmHg TV Peak E Velocity 56.0 cm/s Right Atrial Pressure 3.0 mmHg Pulmonary Artery Systolic Pressu 16.8 mmHg PV Peak Velocity 77.0 cm/s RV Acceleration Time 0.2 s RV Ejection Time 0.4 s RV AcT/ET 0.6 FINDINGS Left Ventricle Normal left ventricular size. LV systolic function is normal with EF of 50-55%. No regional wall motion abnormalities. Normal diastolic filling pattern. Right Ventricle The right ventricle is normal in size and function. Right Atrium The right atrium is normal in size. Left Atrium The left atrium is normal in size. Mitral Valve Structurally normal mitral valve without significant stenosis or prolapse. There is trace mitral regurgitation. Aortic Valve Structurally normal aortic valve without significant sclerosis or stenosis. There is no aortic regurgitation. Tricuspid Valve Structurally normal tricuspid valve without significant stenosis or regurgitation. Insufficient TR jet to calculate RVSP Pulmonic Valve Structurally normal pulmonic valve without significant stenosis. There is no pulmonic regurgitation. Pericardium Normal pericardium without effusion. Aorta Normal ascending aorta dimension. CONCLUSIONS LV systolic function is normal with EF of 50-55% Diastolic function is normal Trace mitral regurgitation is noted No comparison studies are available. Vinay Adams MD (Electronically Signed) Final Date: 21 Sep 2020 12:21 S
== END 2020-09-15 07:19 | disposition home or self-care (01) ==
LOC: US 07:20
PROVIDERS: PCP Nurse Practitioner Family; Visit Provider Obstetrics & Gynecology
DX: I05.9 Rheumatic mitral valve disease, unspecified (principal)
CPT/HCPCS: 93306

== ENCOUNTER 2020-09-22 20:58 | Emergency (ER) | payer OTHER, BC, MEDICAID, SELFPAY ==
[2020-09-22 21:01] VITALS: BP 94/63; PULSE 76; RESP 19; TEMP 36.4; O2SAT 100; BMI 22.1
--- NOTE | 2020-09-22 21:40 | US_ITS ---
WS: [id number] ULTRASOUND ABDOMEN LIMITED CLINICAL INFORMATION: abd pain COMPARISON: None. FINDINGS: Liver Size: Mild hepatomegaly Craniocaudal length: 17.0 cm. Echogenicity: Coarse Surface nodularity: None. Mass (size and location): None. Bile ducts Intrahepatic ducts: Normal. Common bile duct diameter: 0.3 cm. Gallbladder Normal. Gallstones: None. Gallbladder sludge: None. Gallbladder wall thickening: None. Pericholecystic fluid: None. Sonographic Frank sign: Absent. Pancreas Normal as visualized. Right kidney: Normal. Hydronephrosis: None. Size: 9.8 cm x 4.7 cm x 3.2 cm. Abdominal aorta and IVC Visualized portions are normal. Ascites: None. US/US gall bladder [id number] IMPRESSION: 1. Mild hepatomegaly with diffuse fatty infiltration of the liver. 2. Normal gallbladder. 3. Normal common bile duct. 4. No hydronephrosis in right kidney.
--- NOTE | 2020-09-22 21:47 | ED_ITS ---
HPI - Abdominal Pain General: Chief Complaint: Abdominal Pain Stated Complaint: RELATED TROUBLE 16 WKS Time Seen by Provider: 09/22/20 21:01 Source: patient Mode of arrival: ambulatory Limitations: no limitations History of Present Illness: HPI narrative: 25-year-old female who is currently 16 weeks . She started having some epigastric pain today with some cr amping. States it happened after eating and she considered it could be reflux but states it lasted a few hours. She states her pain is currently 4 out of 10. She did have some nausea with retching with no vomiting. She denies any lower abdominal pain. Denies any vaginal bleeding or discharge. Denies any fevers. Associated Symptoms: Denies chills, dysuria and fever(s) Review of Systems Const: Denies: fever(s), chills, body aches or change in appetite Eyes: Denies: blurry vision or eye discomfort ENMT: Denies: throat pain or dental pain Card: Denies: chest pain Resp: Denies: dyspnea GI: Reports: abdominal pain : Denies: dysuria Musc: Denies: neck pain or back pain Skin/Breast: Denies: rash Neuro: Denies: headache(s) Psych: Denies: depression Alexis/Lymph: Denies: easy bruising All/Imm: Denies: urticaria PFSH ED PFSH: Medical History Anxiety and depression Diagnosed in her teenage years and she does do therapy. She has taken medication in the past but does not remember the name. [place] disease Diagnosed at the age of 16 and states that causes of fatty liver and she states that it is controlled with dietary changes. She follows up with her primary care provider. -Had no problems with her liver and her last . Mitral valve disorder No pertinent past medical history Denies diabetes, asthma, hypertension, seizures, DVT/PE. PCP: Lexi Nichols Surgical History No pertinent past surgical history Family History Family/Other Breast cancer maternal great aunt--dx age 50 Colon cancer maternal great uncle--dx age 50's Hypertension maternal aunt Thyroid disease Paternal Uncle Father Stroke Heart disease Hypertension Grandfather Heart disease paternal and maternal Diabetes paternal Hypertension maternal Grandmother Hypertension maternal Denies family history of Ovarian cancer Hyperlipidemia Uterine cancer Female Reproductive History: : 3 Physical Exam Const: COMMON NORMALS: no acute distress, patient oriented x3 and healthy appearing HENMT: COMMON NORMALS: normocephalic and atraumatic HEAD & SCALP: normocephalic and atraumatic Eye: COMMON NORMALS: Equal, round and reactive pupils present and EOMs intact bilaterally PUPIL: Yes Equal, round and reactive pupils present Neck/C-Spine: COMMON NORMALS: full ROM and supple Chest: COMMONS NORMALS: normal inspection of the chest and normal palpation of entire chest wall Resp: COMMON NORMALS: normal respiratory effort, No retractions, No use of accessory muscles and clear to auscultation bilaterally AUSCULTATION: clear to auscultation bilaterally Cardio: COMMON NORMALS: regular rate, regular rhythm and No murmurs present (Cardio) RATE: regular rate RHYTHM: regular rhythm GI: COMMON NORMALS: Normal to inspection, nondistended, normoactive bowel sounds present, Soft to palpation, non-tender and no masses PALPATION: Yes Soft to palpation OTHER: Gravid uterus Extremity: COMMON NORMALS: normal to inspection and full ROM Neuro: COMMON NORMALS: patient oriented x3, moves all extremities and no focal motor deficits Psych: COMMON NORMALS: mental status grossly normal, Normal thought process present and cooperative THOUGHT PROCESS: Normal thought process present Skin: COMMON NORMALS: no rashes or lesions noted and no wounds GENERAL SKIN EXAM: no rashes or lesions noted Course Vital Signs: Vital signs: Vital Signs Temperature 98 F 09/22/20 22:13 Pulse Rate 80 09/22/20 22:13 Respiratory Rate 19 H 09/22/20 21:01 Blood Pressure 94/63 09/22/20 21:01 Pulse Oximetry 100 09/22/20 21:01 MDM - Abdominal Pain MDM Narrative: Medical decision making narrative: Patient presents with abdominal pain and . Likely reflux. Ultrasound of her gallbladder is normal and her blood work is all normal as well. She has no lower abdominal pain or abdominal exam is benign. Did a bedside ultrasound of her uterus which showed an IUP consistent with dates heart rate of 142. Patient is stable for discharge and is to follow-up with her OB and return to ER if worsening. She understands and agrees to plan. Lab Data: Labs: Lab Results 09/22/20 09/22/20 09/22/20 Range/Units 22:00 22:00 22:00 WBC 7.7 (4.0-10.0) 10^3/ uL RBC 4.08 L (4.1-5.3) 10^6/u L Hgb 12.4 (11.5-15.3) g/dL Hct 37.3 (37.0-47.0) % MCV 91.4 (81-99) fL MCH 30.4 (28.0-34.0) pg MCHC 33.2 (30.0-36.0) g/dL RDW 12.6 (12.1-15.1) % Plt Count 133 (130-400) 10^3/c mm MPV 11.9 H (7.4-10.4) fL Neut % (Auto) 66.4 % Lymph % (Auto) 26.7 % [place] % (Auto) 4.5 % Eos % (Auto) 1.7 % Baso % (Auto) 0.4 % Neut # (Auto) 5.13 (1.8-7.7) 10^3/u L Lymph # (Auto) 2.1 (0.8-4.8) 10^3/u L [place] # (Auto) 0.4 (0.2-0.9) 10^3/u L Eos # (Auto) 0.1 (0.0-0.8) 10^3/u L Baso # (Auto) 0.0 (0.0-0.1) 10^3/u L Nucleated RBC % (a uto) 0 % Nucleated RBCs # 0.0 /100WBC Sodium 134 L (136-145) mmol/L Potassium 4.1 (3.5-5.1) mmol/L Chloride 103 (98-107) mmol/L Carbon Dioxide 26 (22-29) mmol/L Anion Gap 9.1 (5-19) BUN 6 (6-20) mg/dL Creatinine 0.4 L (0.5-0.9) mg/dL GFR Calculation 194.5 H (90-130) mL/min Glucose 83 (65-115) mg/dL Calculated Osmolal ity 275 L (285-295) mOsm/k g Calcium 8.6 (8.5-10.5) mg/dL Total Bilirubin 1.3 H (0.15-1.2) mg/dL AST 12 (0-32) U/L ALT 7 (0-33) U/L Alkaline Phosphata se 40 (35-105) IU/L Total Protein 6.6 (6.6-8.7) g/dL Albumin 4.2 (3.5-5.2) g/dL Globulin 2.4 (1.3-4.6) g/dL Lipase 55 (13-60) U/L Urine Color Yellow (Yellow) Urine Appearance Clear (CLEAR) Urine pH 7 (5-7) Ur Specific Gravit y 1.005 (1.005-1.030) Urine Protein Neg (Negative) Urine Glucose (UA) Norm (Normal) Urine Ketones Negative (Negative) Urine Blood Neg (Negative) Urine Nitrate Negative (Negative) Urine Bilirubin 1+ H (Negative) Urine Urobilinogen Norm (Negative) mg/dL Ur Leukocyte Danelle ase Negative (Negative) Imaging Data ^: US: My impression: galbladder normal Discharge Plan Discharge Patient Disposition: Home Clinical Impression: Abdominal pain affecting Condition: Stable Prescriptions: No Action Gummies 400 mcg-35 mg- 25 mg-5 mg tablet,chewable PO RF: 0 fluoxetine 10 mg capsule 10 mg PO DAILY Qty: 30 RF: 0 Discharge Orders: Discharge ED (Routine); Ordered 09/22/20 Ordered By: Landen Herring Referrals: Lexi Nichols FNP [Primary Care Provider] - Discharge Diet: Advance as tolerated Discharge Activity: Resume usual activity Patient Instructions: Abdominal Pain (ED) Coding Level of Care Code ED Publications Manager for Chg Fwd Exam Comprehensive
[2020-09-22] MEDS: lidocaine 2% viscous 15 ML, aluminum-mag hydrox-simethicon 30 ML, sucralfate oral liq 1 GM PO (21:57)
[2020-09-22] MEDS: metoclopramide 5 mg/mL SDV 2 mL IVP (21:58)
[2020-09-22] MEDS: diphenhydrAMINE 50 mg/mL SDV 1mL IVP (21:58)
[2020-09-22] MEDS: sodium chloride 0.9% 1,000 ML 999 ML IV (21:59)
[2020-09-22 22:10] LABS: Add Urine Microscopic? NO; Charge for UA Resulting for Rev
[2020-09-22 22:11] LABS: Basophils % 0.4 %; Eosinophils # 0.1 10^3/uL (0.0-0.8); Eosinophils % 1.7 %; Hematocrit 37.3 % (37.0-47.0); Hemoglobin 12.4 g/dL (11.5-15.3); Lymphocytes # 2.1 10^3/uL (0.8-4.8); Lymphocytes % 26.7 %; Mean Corpuscular HGB Conc 33.2 g/dL (30.0-36.0); Mean Corpuscular Hemoglobin 30.4 pg (28.0-34.0); Mean Corpuscular Volume 91.4 fL (81-99); Mean Platelet Volume 11.9 fL (7.4-10.4); Monocytes # 0.4 10^3/uL (0.2-0.9); Monocytes % 4.5 %; Neutrophils # 5.13 10^3/uL (1.8-7.7); Neutrophils % 66.4 %; Nucleated Red Blood Cells % 0 %; Platelet Count 133 10^3/cmm (130-400); Red Blood Count 4.08 10^6/uL (4.1-5.3); Red Cell Distribution Width 12.6 % (12.1-15.1); White Blood Count 7.7 10^3/uL (4.0-10.0)
[2020-09-22 22:13] VITALS: PULSE 80; TEMP 36.6
[2020-09-22 22:21] LABS: Bilirubin Urine 1+ (Negative); Blood Urine Neg (Negative); Glucose Urine UA Norm (Normal); Ketones Urine Negative (Negative); Leukocyte Esterase Urine Negative (Negative); Nitrate Urine Negative (Negative); Protein Urine Neg (Negative); Specific Gravity, Urine 1.005 (1.005-1.030); Urine Appearance Clear (CLEAR); Urine Color Yellow (Yellow); Urobilinogen Urine Norm (Negative); pH Urine 7 (5-7)
[2020-09-22 22:25] LABS: Alanine Aminotransferase 7 U/L (0-33); Albumin Level 4.2 g/dL (3.5-5.2); Alkaline Phosphatase 40 IU/L (35-105); Anion Gap 9.1 (5-19); Aspartate Amino Transferase 12 U/L (0-32); Blood Urea Nitrogen 6 mg/dL (6-20); Calcium 8.6 mg/dL (8.5-10.5); Carbon Dioxide 26 mmol/L (22-29); Chloride 103 mmol/L (98-107); Globulin 2.4 g/dL (1.3-4.6); Glomerular Filtration Rate 194.5 mL/min (90-130); Glucose 83 mg/dL (65-115); Lipase 55 U/L (13-60); Osmolality Calculated 275 mOsm/kg (285-295); Potassium 4.1 mmol/L (3.5-5.1); Sodium 134 mmol/L (136-145); Total Bilirubin 1.3 mg/dL (0.15-1.2); Total Protein 6.6 g/dL (6.6-8.7)
[2020-09-22] MEDS: diphenhydrAMINE 50 mg/mL SDV 1mL 25 MG IVP (22:40)
[2020-09-22 22:58] VITALS: BP 126/80; PULSE 70; RESP 15; TEMP 36.6; O2SAT 99
== END 2020-09-22 23:02 | disposition home or self-care (01) ==
PROVIDERS: Emergency Provider Emergency Medicine; PCP Nurse Practitioner Family
DX: O26.892 Other specified pregnancy related conditions, second trimester (principal); R10.9 Unspecified abdominal pain; Z3A.16 16 weeks gestation of pregnancy
CPT/HCPCS: 76705; 80053; 81003; 83690; 85025; 96361; 96374; 96375; 96376; 99284; J1200; J2765; J7030

== ENCOUNTER → 2020-11-04 14:29 | Outpatient (BNVA) | payer OTHER, BC, MEDICAID, SELFPAY | PROVIDERS: PCP Nurse Practitioner Family; Visit Provider Nurse Practitioner Family | DX: S99.921A Unspecified injury of right foot, initial encounter (principal); X58.XXXA Exposure to other specified factors, initial encounter | CPT/HCPCS: 73620 ==

== ENCOUNTER 2020-11-14 23:40 | Outpatient (CLI) | payer OTHER, BC, MEDICAID, SELFPAY ==
[2020-11-14 23:40] VITALS: BMI 23.1
[2020-11-14 23:50] VITALS: BP 121/61; PULSE 67; PULSE 70; O2SAT 100
[2020-11-14 23:54] VITALS: TEMP 36.8
[2020-11-14 23:55] VITALS: PULSE 72; O2SAT 100
[2020-11-14 23:56] VITALS: RESP 22; O2SAT 100
[2020-11-15] VITALS: PULSE 79; O2SAT 100
[2020-11-15 00:05] VITALS: BP 115/65; PULSE 72; O2SAT 100
== END 2020-11-15 00:11 | disposition home or self-care (01) ==
LOC: OPOB 23:46 → OBGYN 23:47
PROVIDERS: PCP Nurse Practitioner Family; Visit Provider Obstetrics & Gynecology
DX: O26.899 Other specified pregnancy related conditions, unspecified trimester (principal); Z3A.00 Weeks of gestation of pregnancy not specified; R10.9 Unspecified abdominal pain; R07.9 Chest pain, unspecified
CPT/HCPCS: 99211

== ENCOUNTER 2020-11-15 00:14 | Emergency (ER) | payer OTHER, BC, MEDICAID, SELFPAY ==
[2020-11-15 00:24] VITALS: BP 109/69; PULSE 73; RESP 18; TEMP 36.5; O2SAT 100; BMI 23.5
--- NOTE | 2020-11-15 01:09 | ED_ITS ---
HPI - Anxiety General: Chief Complaint: Anxiety Stated Complaint: CP/SENT FROM OB Time Seen by Provider: 11/15/20 00:37 Source: patient Mode of arrival: ambulatory Limitations: no limitations History of Present Illness: HPI narrative: Patient is a 25-year-old female who presents to ED today after she was initially evaluated at OB for complaints of possible anxiety. Patient tells me over the past 2 to 3 days she has had several episodes where she feels like her heart is pounding, feels short of breath, has chest pains, feels lightheaded/dizzy, feels like she cannot think st raight, and has trouble speaking. Patient states that she can be calmed down from these episodes by her significant other talking her through them or by calming meditative breathing. She states in between episodes she feels normal and does not have symptoms. She was placed on fluoxetine by Dr. Carvalho approximately a month ago for anxiety/depression. States it didn't seem to help so she quit taking it. Patient denies ARVIZU, high blood pressure, changes in urine output, leg swelling. Feeling good movements. No abdominal pain/cramping/bleeding. MD complaint: anxiety Onset (ago): day(s) Symptoms: dyspnea, chest pain, palpitations, dry mouth and sense of impending doom Severity: moderate Quality: intermittent Place: home History of similar episodes: Yes Relieving factors: deep breaths Exacerbating factors: nothing Associated symptoms: Reports chest pain, confusion (during episodes only) and palpitations; Deny chills, fever(s), headache(s), malaise, nausea, syncope or vomiting Review of Systems Const: Denies: fever(s), chills, body aches, change in appetite, change in weight, fatigue or malaise Eyes: Reports: change in vision (during episodes only); Denies: photophobia, eye discomfort, eye discharge, floaters or seeing flashes ENMT: Denies: throat pain or odynophagia Card: Reports: chest pain, palpitations, lightheadedness and pre-syncope; Denies: irregular heart rhythm, edema, swelling of feet/ankles, syncope, dyspnea on exertion, orthopnea, leg pain with exertion or acrocyanosis Resp: Reports: dyspnea; Denies: productive cough, non-productive cough, wheezing, stridor, pain on inspiration, change in phlegm color or hemoptysis GI: Denies: abdominal pain, nausea, vomiting or diarrhea : Denies: flank pain, difficulty voiding, dysuria, urinary frequency, urinary urgency, urinary hesitancy, vaginal odor, vaginal bleeding, vaginal discharge or pelvic pain Musc: Denies: neck pain, back pain, extremity pain or joint pain Skin/Breast: Denies: rash Neuro: Reports: sensory changes (tingling during episodes), dizziness, confusion (during episodes only) and difficulty communicating thoughts (during episodes only); Denies: headache(s), numbness in extremities, difficulty walking, frequent falls, vertigo, behavioral changes or seizure-like activity PFSH ED PFSH: Medical History Anxiety and depression Diagnosed in her teenage years and she does do therapy. She has taken medication in the past but does not remember the name. [place] disease Diagnosed at the age of 16 and states that causes of fatty liver and she states that it is controlled with dietary changes. She follows up with her primary care provider. -Had no problems with her liver and her last . No pertinent past medical history Denies diabetes, asthma, hypertension, seizures, DVT/PE. PCP: Lexi Nichols Surgical History No pertinent past surgical history Family History Family/Other Breast cancer maternal great aunt--dx age 50 Colon cancer maternal great uncle--dx age 50's Hypertension maternal aunt Thyroid disease Paternal Uncle Father Stroke Heart disease Hypertension Grandfather Heart disease paternal and maternal Diabetes paternal Hypertension maternal Grandmother Hypertension maternal Denies family history of Ovarian cancer Hyperlipidemia Uterine cancer Social History (Updated 11/04/20 @ 14:16 by Armand Borjas LPN) Smoking and tobacco status: never smoked Second hand smoke exposure: No Alcohol intake: never Desire information about alcohol rehabilitation?: No Physical Exam Const: COMMON NORMALS: average body habitus, patient oriented x3, no limitations, healthy appearing, alert and well nourished GENERAL APPEARANCE: cooperative and anxious ORIENTATION/CONSCIOUSNESS: Yes awake, Yes oriented to person, Yes oriented to place and Yes oriented to time HENMT: COMMON NORMALS: normocephalic and atraumatic HEAD & SCALP: normocephalic and atraumatic Resp: COMMON NORMALS: normal respiratory effort and clear to auscultation bilaterally AUSCULTATION: clear to auscultation bilaterally Cardio: COMMON NORMALS: regular rate and regular rhythm RATE: regular rate RHYTHM: regular rhythm GI: INSPECTION: Yes gravid abdomen Extremity: COMMON NORMALS: no pedal edema Neuro: SAM COMA SCALE: document GCS findings Garvin coma scale eye opening: Spontaneous Garvin coma scale verbal response: Orientated Garvin coma scale motor response: Obey commands Sam coma scale total score: 15 COMMON NORMALS: patient oriented x3, CN's II-XII intact bilaterally, moves all extremities, no focal motor deficits and no sensory deficits noted SENSORIUM/ORIENTATION: Yes alert, Yes oriented to person, Yes oriented to place and Yes oriented to time Skin: COMMON NORMALS: no rashes or lesions noted GENERAL SKIN EXAM: no rashes or lesions noted Course Vital Signs: Vital signs: Vital Signs Temperature 97.7 F 11/15/20 00:24 Pulse Rate 80 11/15/20 03:29 Respiratory Rate 17 11/15/20 03:29 Blood Pressure 99/54 11/15/20 03:29 Pulse Oximetry 99 11/15/20 03:29 MDM - Anxiety MDM Narrative: Medical decision making narrative: Patient has had several of these episodes while here. She seems to hyperventilate and complains of feeling woozy headed and has trouble communicating and then comes back to normal. She reports feeling better after IV diphenhydramine and ativan and states she hasn't had anymore since. Work up here today normal. Recommend she c ontinue taking her fluoxetine as prescribed and contact Dr. Carvalho to see if she wants to make any further adjustments with her medications. Return to ED precautions given. EKG Data^: EKG 1: EKG interpretation date: 11/15/20 EKG interpretation time: 01:55 Interpretation: Sinus rhythm with short NJ interval Rate [address] elevation or depression changes noted Lab Data: Attestation: I reviewed the patient's lab results. Labs: Lab Results 11/15/20 11/15/20 11/15/20 Range/Units 00:50 00:50 00:50 WBC 7.7 (4.0-10.0) 10^3/ uL RBC 3.80 L (4.1-5.3) 10^6/u L Hgb 12.0 (11.5-15.3) g/dL Hct 35.2 L (37.0-47.0) % MCV 92.6 (81-99) fL MCH 31.6 (28.0-34.0) pg MCHC 34.1 (30.0-36.0) g/dL RDW 13.1 (12.1-15.1) % Plt Count 130 (130-400) 10^3/c mm MPV 12.5 H (7.4-10.4) fL Neut % (Auto) 79.0 % Lymph % (Auto) 15.1 % [place] % (Auto) 4.5 % Eos % (Auto) 0.5 % Baso % (Auto) 0.3 % Neut # (Auto) 6.11 (1.8-7.7) 10^3/u L Lymph # (Auto) 1.2 (0.8-4.8) 10^3/u L [place] # (Auto) 0.4 (0.2-0.9) 10^3/u L Eos # (Auto) 0.0 (0.0-0.8) 10^3/u L Baso # (Auto) 0.0 (0.0-0.1) 10^3/u L Nucleated RBC % (a uto) 0 % Nucleated RBCs # 0.0 /100WBC Specimen Type Sample Site ABG pH (7.35-7.45) ABG pCO2 (35-45) mmHg ABG pO2 (80.0-100.0) mmH g ABG HCO3 (22-26) mmol/L ABG O2 Saturation ABG Base Excess (-2.0-2.0) mmol/ L Adam Test A-a O2 Gradient (5-10) mmHg Hematocrit (37-47) % Hgb O2 Saturation (95-100) % Carboxyhemoglobin (0.4-20.1) %THgb Methemoglobin (0.4-1.5) % Total Hemoglobin (12-16) g/dL Ionized Calcium (1.1-1.4) mmol/L O2 Delivery Device Senior Brand Manager ID Sodium 137 (136-145) mmol/L Potassium 3.6 (3.5-5.1) mmol/L Chloride 105 (98-107) mmol/L Carbon Dioxide 19 L (22-29) mmol/L Anion Gap 16.6 (5-19) BUN 8 (6-20) mg/dL Creatinine 0.4 L (0.5-0.9) mg/dL GFR Calculation 194.5 H (90-130) mL/min Glucose 96 (65-115) mg/dL Calculated Osmolal ity 282 L (285-295) mOsm/k g Calcium 9.2 (8.5-10.5) mg/dL Total Bilirubin 1.1 (0.15-1.2) mg/dL AST 22 (0-32) U/L ALT 19 (0-33) U/L Alkaline Phosphata se 46 (35-105) IU/L Troponin T Gen 5 n g/L 6 (0-10) ng/L NT-Pro-B Natriuret Pep (0-125) pg/mL Total Protein 6.2 L (6.6-8.7) g/dL Albumin 3.9 (3.5-5.2) g/dL Globulin 2.3 (1.3-4.6) g/dL Urine Color (Yellow) Urine Appearance (CLEAR) Urine pH (5-7) Ur Specific Gravit y (1.005-1.030) Urine Protein (Negative) Urine Glucose (UA) (Normal) Urine Ketones (Negative) Urine Blood (Negative) Urine Nitrate (Negative) Urine Bilirubin (Negative) Prot Sulfosalicyli c Acd (Negative) Urine Urobilinogen (Negative) mg/dL Ur Leukocyte Danelle ase (Negative) Urine RBC (0-2) /hpf Urine WBC (0-5) /hpf Ur Squamous Epith Cells (0-5) /hpf Amorphous Sediment /hpf Urine Bacteria (NONE) /hpf 11/15/20 11/15/20 11/15/20 Range/Units 00:50 01:25 02:00 WBC (4.0-10.0) 10^3/ uL RBC (4.1-5.3) 10^6/u L Hgb (11.5-15.3) g/dL Hct (37.0-47.0) % MCV (81-99) fL MCH (28.0-34.0) pg MCHC (30.0-36.0) g/dL RDW (12.1-15.1) % Plt Count (130-400) 10^3/c mm MPV (7.4-10.4) fL Neut % (Auto) % Lymph % (Auto) % [place] % (Auto) % Eos % (Auto) % Baso % (Auto) % Neut # (Auto) (1.8-7.7) 10^3/u L Lymph # (Auto) (0.8-4.8) 10^3/u L [place] # (Auto) (0.2-0.9) 10^3/u L Eos # (Auto) (0.0-0.8) 10^3/u L Baso # (Auto) (0.0-0.1) 10^3/u L Nucleated RBC % (a uto) % Nucleated RBCs # /100WBC Specimen Type Arterial Sample Site Radial, left ABG pH 7.43 (7.35-7.45) ABG pCO2 32.7 L (35-45) mmHg ABG pO2 89.2 (80.0-100.0) mmH g ABG HCO3 21.9 L (22-26) mmol/L ABG O2 Saturation 97.7 ABG Base Excess -1.7 (-2.0-2.0) mmol/ L Adam Test Pos A-a O2 Gradient 2.4 L (5-10) mmHg Hematocrit 36.6 L (37-47) % Hgb O2 Saturation 96.1 (95-100) % Carboxyhemoglobin 0.8 (0.4-20.1) %THgb Methemoglobin 0.9 (0.4-1.5) % Total Hemoglobin 11.9 L (12-16) g/dL Ionized Calcium 1.2 (1.1-1.4) mmol/L O2 Delivery Device Room air Senior Brand Manager ID [email or web address] Sodium 138.0 (136-145) mmol/L Potassium 3.3 L (3.5-5.1) mmol/L Chloride (98-107) mmol/L Carbon Dioxide (22-29) mmol/L Anion Gap (5-19) BUN (6-20) mg/dL Creatinine (0.5-0.9) mg/dL GFR Calculation (90-130) mL/min Glucose 97.0 (65-115) mg/dL Calculated Osmolal ity (285-295) mOsm/k g Calcium (8.5-10.5) mg/dL Total Bilirubin (0.15-1.2) mg/dL AST (0-32) U/L ALT (0-33) U/L Alkaline Phosphata se (35-105) IU/L Troponin T Gen 5 n g/L (0-10) ng/L NT-Pro-B Natriuret Pep 41 (0-125) pg/mL Total Protein (6.6-8.7) g/dL Albumin (3.5-5.2) g/dL Globulin (1.3-4.6) g/dL Urine Color Yellow (Yellow) Urine Appearance Sl cloudy A (CLEAR) Urine pH 9 H (5-7) Ur Specific Gravit y 1.015 (1.005-1.030) Urine Protein Neg (Negative) Urine Glucose (UA) Norm (Normal) Urine Ketones Negative (Negative) Urine Blood Neg (Negative) Urine Nitrate Negative (Negative) Urine Bilirubin Neg (Negative) Prot Sulfosalicyli c Acd Negative (Negative) Urine Urobilinogen Norm (Negative) mg/dL Ur Leukocyte Danelle ase Negative (Negative) Urine RBC 0-4 H (0-2) /hpf Urine WBC 0-4 H (0-5) /hpf Ur Squamous Epith Cells 25-40 H (0-5) /hpf Amorphous Sediment 3+ /hpf Urine Bacteria 3+ H (NONE) /hpf Discharge Plan Discharge Patient Disposition: Home Clinical Impression: Acute anxiety Condition: Stable Prescriptions: New Vistaril 25 mg capsule 25 mg PO Q6H PRN (Reason: anxiety) Qty: 14 RF: 0 No Action Gummies 400 mcg-35 mg- 25 mg-5 mg tablet,chewable PO RF: 0 fluoxetine 10 mg capsule 10 mg PO DAILY Qty: 30 RF: 0 Discharge Orders: Discharge ED (Routine); Ordered 11/15/20 Ordered By: Emani Reyes Referrals: Lexi Nichols HAND MOLDER MEAT [Primary Care Provider] - Patient Instructions: Anxiety (ED) Activity Restrictions/Additional Instructions: As we discussed please follow-up with your OB provider Dr. Carvalho for further recommendations on treatment of your anxiety during . I do recommend continuing to take your fluoxetine that she prescribed as this medication often works well for anxiety as well as depression. Coding Level of Care Code ED Portfolio Director for Skyler Fwd Exam Comprehensive
[2020-11-15] MEDS: diphenhydrAMINE 50 mg/mL SDV 1mL 25 MG IVP (01:14)
[2020-11-15 01:16] VITALS: BP 116/68; PULSE 65; RESP 18; O2SAT 98
--- NOTE | 2020-11-15 01:24 | ECG_ITS ---
[facility] Test Date: 2020-11-15 Pat Name: Batsheva Bernal Department: Room: Gender: Female Radio Equipment Installer: : 1995 Requested By: Emani Reyes Order Number: [id number] Keily MD: Anne Emerson M.D. Measurements Intervals [place] Rate: 60 P: 56 TN: 116 QRS: 34 QRSD: 82 T: 33 QT: 424 QTc: 424 Interpretive Statements SINUS RHYTHM WITH SHORT TN INTERVAL POSSIBLE RIGHT VENTRICULAR CONDUCTION DELAY [RSR (QR) IN V1/V2] Compared to ECG 08/19/2016 04:16:02 No significant changes Electronically Signed On 11-15-2020 9:51:42 CDT by Anne Emerson M.D. [id number]
[2020-11-15 01:29] LABS: Basophils % 0.3 %; Eosinophils % 0.5 %; Hematocrit 35.2 % (37.0-47.0); Lymphocytes # 1.2 10^3/uL (0.8-4.8); Lymphocytes % 15.1 %; Mean Corpuscular HGB Conc 34.1 g/dL (30.0-36.0); Mean Corpuscular Hemoglobin 31.6 pg (28.0-34.0); Mean Corpuscular Volume 92.6 fL (81-99); Mean Platelet Volume 12.5 fL (7.4-10.4); Monocytes # 0.4 10^3/uL (0.2-0.9); Monocytes % 4.5 %; Neutrophils # 6.11 10^3/uL (1.8-7.7); Nucleated Red Blood Cells % 0 %; Platelet Count 130 10^3/cmm (130-400); Red Cell Distribution Width 13.1 % (12.1-15.1); White Blood Count 7.7 10^3/uL (4.0-10.0)
[2020-11-15 01:35] LABS: ABG PCO2 32.7 mmHg (35-45); ABG PH Result 7.43 (7.35-7.45); Alveolar-Arterial Oxygen Gradi 2.4 mmHg (5-10); Arterial Blood Gas Hematocrit 36.6 % (37-47); Base Excess ABG -1.7 mmol/L (-2.0-2.0); Blood Gas Allen Test Pos; Blood Gas Sample Site Radial, left; Blood Gas Sample Type Arterial; Carboxyhemoglobin 0.8 %THgb (0.4-20.1); HCO3 ABG 21.9 mmol/L (22-26); HGB O2 Sat 96.1 % (95-100); Ionized Calcium Level - ABG 1.2 mmol/L (1.1-1.4); Methemoglobin 0.9 % (0.4-1.5); Oxygen Device ROOM AIR; Oxygen Saturation ABG 97.7; PO2 ABG 89.2 mmHg (80.0-100.0); Potassium Level - ABG 3.3 mmol/L (3.5-5.0); Total Hemoglobin 11.9 g/dL (12-16)
[2020-11-15 01:43] LABS: Alanine Aminotransferase 19 U/L (0-33); Albumin Level 3.9 g/dL (3.5-5.2); Alkaline Phosphatase 46 IU/L (35-105); Anion Gap 16.6 (5-19); Aspartate Amino Transferase 22 U/L (0-32); Blood Urea Nitrogen 8 mg/dL (6-20); Calcium 9.2 mg/dL (8.5-10.5); Carbon Dioxide 19 mmol/L (22-29); Chloride 105 mmol/L (98-107); Globulin 2.3 g/dL (1.3-4.6); Glomerular Filtration Rate 194.5 mL/min (90-130); Glucose 96 mg/dL (65-115); Osmolality Calculated 282 mOsm/kg (285-295); Potassium 3.6 mmol/L (3.5-5.1); Sodium 137 mmol/L (136-145); Total Bilirubin 1.1 mg/dL (0.15-1.2); Total Protein 6.2 g/dL (6.6-8.7)
[2020-11-15 01:48] LABS: Troponin T (5th) Once 6 ng/L (0-10)
[2020-11-15 01:55] LABS: NT Pro B Type Natriuretic Pept 41 pg/mL (0-125)
[2020-11-15 02:20] LABS: Add Urine Microscopic? YES; Bilirubin Urine Neg (Negative); Blood Urine Neg (Negative); Glucose Urine UA Norm (Normal); Ketones Urine Negative (Negative); Leukocyte Esterase Urine Negative (Negative); Nitrate Urine Negative (Negative); Protein Urine Neg (Negative); Specific Gravity, Urine 1.015 (1.005-1.030); Sulfosalicylic Acid Urine Negative (Negative); Urine Color Yellow (Yellow); Urobilinogen Urine Norm (Negative); pH Urine 9 (5-7)
[2020-11-15 02:21] LABS: Add Urine Culture? No; Amorphous Sediment Urine 3+ /hpf; Bacteria Urine 3+ /hpf; RBC Urine 0-4 /hpf (0-2); Squamous Epithelial Cell Urine 25-40 /hpf (0-5); WBC Urine 0-4 /hpf (0-5)
[2020-11-15] MEDS: LORazepam 2 mg/mL INJ 1 mL 0.5 MG IVP (03:14)
[2020-11-15 03:17] VITALS: BP 99/54; PULSE 86; RESP 21; O2SAT 100
[2020-11-15 03:29] VITALS: BP 99/54; PULSE 80; RESP 17; O2SAT 99
== END 2020-11-15 03:29 | disposition home or self-care (01) ==
PROVIDERS: Absent Provider Obstetrics & Gynecology; Emergency Provider Physician Assistant; PCP Nurse Practitioner Family
DX: F41.9 Anxiety disorder, unspecified (principal)
CPT/HCPCS: 36600; 80051; 80053; 81001; 82330; 82805; 83880; 84484; 85025; 93005; 96374; 96375; 99284; J1200; J2060

== ENCOUNTER 2020-12-12 18:32 | Outpatient (CLI) | payer OTHER, BC, MEDICAID, SELFPAY ==
[2020-12-12] VITALS (7 sets, daily range): BP systolic 111–123; BP diastolic 63–69; PULSE 65–72; TEMP 36.7; BMI 25.0
[2020-12-12 19:37] LABS: Nitrazine Paper, PH Negative
[2020-12-12 20:23] LABS: Bilirubin Urine Neg (Negative); Blood Urine Neg (Negative); Glucose Urine UA Norm (Normal); Ketones Urine Negative (Negative); Leukocyte Esterase Urine Negative (Negative); Nitrate Urine Negative (Negative); Protein Urine Neg (Negative); Urine Appearance SL Hazy (CLEAR); Urine Color Yellow (Yellow); Urobilinogen Urine 1 mg/dL (Negative); WBC Urine 0-4 /hpf (0-5); pH Urine 6 (5-7)
[2020-12-12 20:24] LABS: Add Urine Culture? No; Bacteria Urine 1+ /hpf; Mucus Urine TRACE /hpf
== END 2020-12-12 20:53 | disposition home or self-care (01) ==
LOC: OPOB 18:34 → OBGYN 18:35
PROVIDERS: PCP Nurse Practitioner Family; Visit Provider Obstetrics & Gynecology
DX: O26.899 Other specified pregnancy related conditions, unspecified trimester (principal); Z3A.00 Weeks of gestation of pregnancy not specified; N89.8 Other specified noninflammatory disorders of vagina
CPT/HCPCS: 59025; 81001; 83986; 99211

== ENCOUNTER → 2020-12-18 08:12 | Outpatient (BNVA) | payer OTHER, BC, MEDICAID, SELFPAY | PROVIDERS: PCP Nurse Practitioner Family; Visit Provider Obstetrics & Gynecology | DX: O99.119 Other diseases of the blood and blood-forming organs and certain disorders involving the immune mechanism complicating pregnancy, unspecified trimester (principal); I05.9 Rheumatic mitral valve disease, unspecified; D69.6 Thrombocytopenia, unspecified; Z3A.00 Weeks of gestation of pregnancy not specified | CPT/HCPCS: 82950; 84315; 85025 ==

== ENCOUNTER → 2020-12-23 14:12 | Outpatient (BNVA) | payer OTHER, BC, MEDICAID, SELFPAY | PROVIDERS: PCP Nurse Practitioner Family; Visit Provider Nurse Practitioner Family | DX: Z20.822 Contact with and (suspected) exposure to COVID-19 (principal) | CPT/HCPCS: 87635 ==

== ENCOUNTER 2021-02-08 10:35 | Outpatient (CLI) | payer OTHER, BC, MEDICAID, SELFPAY ==
[2021-02-08 10:35] VITALS: BMI 27.2
[2021-02-08 10:48] VITALS: BP 131/63; PULSE 75
[2021-02-08 10:51] VITALS: RESP 20; TEMP 36.4; O2SAT 97
[2021-02-08 11:08] VITALS: BP 110/63; PULSE 68
[2021-02-08 11:28] VITALS: BP 115/62; PULSE 68
[2021-02-08 11:32] LABS: SARS Covid-2 Antigen Negative (Negative)
[2021-02-08 11:55] VITALS: BP 115/62; PULSE 68; RESP 20; TEMP 36.4; O2SAT 97
[2021-02-09 15:22] LABS: Coronavirus Test Green County Not Detected
== END 2021-02-08 11:49 | disposition home or self-care (01) ==
LOC: OPOB 10:38 → OBGYN 10:43
PROVIDERS: Absent Provider Obstetrics & Gynecology; PCP Nurse Practitioner Family; Visit Provider Obstetrics & Gynecology
DX: O26.899 Other specified pregnancy related conditions, unspecified trimester (principal); Z3A.00 Weeks of gestation of pregnancy not specified; R06.02 Shortness of breath
CPT/HCPCS: 59025; 87426; 87635; 99211

== ENCOUNTER → 2021-02-17 10:05 | Outpatient (BNVA) | payer OTHER, BC, MEDICAID, SELFPAY | PROVIDERS: PCP Nurse Practitioner Family; Visit Provider Obstetrics & Gynecology | DX: Z34.90 Encounter for supervision of normal pregnancy, unspecified, unspecified trimester (principal); D69.6 Thrombocytopenia, unspecified; O99.119 Other diseases of the blood and blood-forming organs and certain disorders involving the immune mechanism complicating pregnancy, unspecified trimester | CPT/HCPCS: 84315; 85025; 87081 ==

== ENCOUNTER 2021-02-23 15:00 | Outpatient (CLI) | payer OTHER, BC, MEDICAID, SELFPAY ==
[2021-02-23] VITALS (10 sets, daily range): BP systolic 105–127; BP diastolic 57–68; PULSE 70–86; RESP 17; TEMP 36.2–36.6; BMI 26.6
--- NOTE | 2021-02-23 15:32 | US_ITS ---
WS: [id number] BIOPHYSICAL PROFILE AMNIOTIC FLUID HISTORY: decreased movement COMPARISON: None available. Cardiac activity: 153 bpm. Cervix: closed. Placenta: Anterior, no previa or abruption. Placenta grade: 2 Parameters are as follows: Breathin Movement: 2 Tone: 2 Fluid volume: 2 Amniotic fluid index: 9.1 cm which is between the 50th and 50th percentiles, low normal. Largest vert ical pocket is 2.7 cm. US/US OB BPP wo NST 21290 IMPRESSION: 1. Biophysical profile score: 8/8. 2. Amniotic fluid index 9.1 cm.
--- NOTE | 2021-02-23 17:41 | P.PCN_ITS ---
Procedure/Consent Procedure Narrative: NONSTRESS TEST: [place] of test[place] [facility] [place] Indication: 25-year-old 3 para 1-0-1-1 at 37 weeks and 4 days with decreased movement and contractions Date and time of test: 02/23/2021 Baseline: 140 Variability: Moderate variability Accelerations: Accelerations present Decelerations: No decelerations Tocometry: No contractions INTERPRETATION: NST reactive, continue kick counts
[2021-03-05 19:21] VITALS: BP 111/62; PULSE 73
[2021-03-05 19:22] VITALS: TEMP 36
[2021-03-05 19:37] VITALS: TEMP 36.3
[2021-03-05 19:38] VITALS: PULSE 79; O2SAT 99
== END 2021-02-23 17:10 | disposition home or self-care (01) ==
LOC: OPOB 15:03 → OBGYN 15:04
PROVIDERS: PCP Nurse Practitioner Family; Visit Provider Obstetrics & Gynecology
DX: O36.8130 Decreased fetal movements, third trimester, not applicable or unspecified (principal); Z3A.37 37 weeks gestation of pregnancy; R10.9 Unspecified abdominal pain
CPT/HCPCS: 59025; 76819; 99211

== ENCOUNTER 2021-03-05 18:58 | Inpatient (IN) | payer OTHER, BC, MEDICAID, SELFPAY ==
[2021-03-05] VITALS (25 sets, daily range): BP systolic 111–137; BP diastolic 55–81; PULSE 63–128; RESP 14–20; TEMP 35.9–36.3; O2SAT 97–100; BMI 28.6
--- NOTE | 2021-03-05 19:36 | W.PM.OPSUD ---
Surgery/Procedure H&P Update DATE OF PROCEDURE: March 07, 2021 DATE H&P PERFORMED: 03/05/21 H&P UPDATE INFORMATION: I have reviewed H&P completed within last 30 days, I have examined patient prior to procedure and No changes to prior documentation PREOP DIAGNOSIS: labor
--- NOTE | 2021-03-05 20:05 | PC.NURSE ---
Called placed to registration to notify they had admitted on the patient's old account and that it needs to be deleted and put back in as a new admission.
[2021-03-05] MEDS: dextrose 5%-lactated ringers 1,000 ML 125 ML IV (21:00)
[2021-03-05 21:01] LABS: Basophils % 0.2 %; Eosinophils # 0.1 10^3/uL (0.0-0.8); Eosinophils % 0.8 %; Hematocrit 33.9 % (37.0-47.0); Hemoglobin 11.2 g/dL (11.5-15.3); Lymphocytes # 1.4 10^3/uL (0.8-4.8); Lymphocytes % 14.5 %; Mean Corpuscular Hemoglobin 31.7 pg (28.0-34.0); Mean Platelet Volume 13.6 fL (7.4-10.4); Monocytes # 0.5 10^3/uL (0.2-0.9); Monocytes % 4.9 %; Neutrophils # 7.46 10^3/uL (1.8-7.7); Nucleated Red Blood Cells % 0 %; Platelet Count 129 10^3/cmm (130-400); Red Blood Count 3.53 10^6/uL (4.1-5.3); Red Cell Distribution Width 13.1 % (12.1-15.1); White Blood Count 9.5 10^3/uL (4.0-10.0)
[2021-03-05] MEDS: oxytocin 30 UNIT/500 ML BAG IV (21:06)
[2021-03-05] MEDS: lactated ringers 1,000 ML 999 ML IV (22:32)
--- NOTE | 2021-03-05 23:22 | P.ANESASSM_ITS ---
Pre-Anesthetic Assessment Pre-Anesthetic Assessment: Height/Weight: Height 1.7 m Weight 83.007 kg Temp Pulse Resp BP Pulse Ox 97.0 F L 73 14 112/81 99 03/05/21 20:46 03/05/21 23:02 03/05/21 20:00 03/05/21 23:02 03/05/21 19:21 Preop Diagnosis: labor Proposed Procedure: epidural Was Beta Cody taken within 24 hours: N/A Was Clonidine taken within 24 hours: N/A Last Intake: 18:30 Social: Social History: No alcohol and No tobacco Exam: Pre-Anes Outpt Exam: alert, oriented x 3, clear to auscultation bilaterally and regular rate & rhythm (murmor) Airway: Submandibular: WNL Cervical ROM: WNL MP: 1 Dentition: Full Pulmonary: Pulmonary: None reported CV/HEM: CV/HEM: Murmur (MVP-mild, Thrombocytopenia with normal PLTs over last month) : : None reported Hepatic: Hepatic: None reported GI: GI: None reported Metabolic: Metabolic: None reported Comments: hypoglycemia Musc/skel: Musc/skel: None reported Neuropsych: Neuropsych: None reported Anesthetic Plan: ASA status: 2 Anesthesia: Regional (specify below) Risk of > 500 ml blood loss (7ml/kg in children): No Meds/Allergies Current Medications: Current Medications Generic Name Dose Route Start Last Admin Trade Name Freq PRN Reason Stop Dose Admin Lactated Ringer's 1,000 mls @ 999 m ls/hr 03/05/21 20:29 03/05/21 22:32 Lactated Ringers IV 999 mls/hr .Q1H1M PRN Administration BLEEDING Dextrose/Lactated Ringer's 1,000 mls @ 125 m ls/hr 03/05/21 20:29 03/05/21 22:33 Dextrose 5%-Lact ated Ringers IV 0 mls/hr .Q8H PRN Infusion LABOR INDUCTION Oxytocin 30 unit in 500 ml s @ 1 mls/hr 03/05/21 20:29 03/05/21 21:06 Pitocin IV 1 milliunit/min .Q24H PRN 1 mls/hr LABOR INDUCTION Administration Protocol 1 MILLIUNIT/MIN PFSH Anesthesia PFSH: Medical History Anxiety and depression Diagnosed in her teenage years and she does do therapy. She has taken medication in the past but does not remember the name. [place] disease Diagnosed at the age of 16 and states that causes of fatty liver and she states that it is controlled with dietary changes. She follows up with her primary care provider. -Had no problems with her liver and her last . No pertinent past medical history Denies diabetes, asthma, hypertension, seizures, DVT/PE. PCP: Lexi Nichols Surgical History No pertinent past surgical history Family History Family/Other Breast cancer maternal great aunt--dx age 50 Colon cancer maternal great uncle--dx age 50's Hypertension maternal aunt Thyroid disease Paternal Uncle Father Stroke Heart disease Hypertension Grandfather Heart disease paternal and maternal Diabetes paternal Hypertension maternal Grandmother Hypertension maternal Denies family history of Ovarian cancer Hyperlipidemia Uterine cancer Social History Smoking and tobacco status: never smoked Alcohol intake: never Data Anesthesia CBC & Chem 7: 03/05/21 19:30 Other Labs: Laboratory Results - last 48 hr 03/05/21 19:30 WBC 9.5 RBC 3.53 L Hgb 11.2 L Hct 33.9 L MCV 96.0 MCH 31.7 MCHC 33.0 RDW 13.1 Plt Count 129 L MPV 13.6 H Neut % (Auto) 79.0 Lymph % (Auto) 14.5 [place] % (Auto) 4.9 Eos % (Auto) 0.8 Baso % (Auto) 0.2 Neut # (Auto) 7.46 Lymph # (Auto) 1.4 [place] # (Auto) 0.5 Eos # (Auto) 0.1 Baso # (Auto) 0.0 Nucleated RBC % (auto) 0 Nucleated RBCs # 0.0 Cardiac Studies: No Data to Display
[2021-03-05] MEDS: fentaNYL 50 mcg/mL INJ 2mL IVP (23:33)
[2021-03-06] VITALS (78 sets, daily range): BP systolic 74–123; BP diastolic 42–71; PULSE 60–86; RESP 14–16; TEMP 35.7–36.2; O2SAT 97–100
--- NOTE | 2021-03-06 00:01 | ANES.PROC ---
Anesthesia Procedures Procedure/Date: 03/06/21 Epidural: Time Out Performed: Yes Consents Signed: Procedure Consent and NPO Consent Consent: requested by attending/covering physician, from patient, risks and benefits reviewed and patient agrees to proceed Lumbar Level: L3-L4 Epidural position: sitting Epidural procedure: sterile prep of area (betadine), 1% lidocaine to numb the area (3ml), 18 g needle, neg for paresthesia, test dose given, 1.5% xylocaine 1:200k epi (5ml), 0.2% Ropivacaine bolus ml (5ml), placed PCEA, no systemic response, sterile dressing applied, L.U.D. no apparent complications and 0.2% Ropiavacaine @ mls/hr (13ml/hr)
--- NOTE | 2021-03-06 00:48 | ANES.PROC ---
Anesthesia Procedures Procedure/Date: 03/06/21 epidural bolus Procedure Narrative: Called to LDR 4 with pt complaining of pressure and feeling contractions on the left side. Pt placed Left side down and Lidocaine 2% MPF 8ml with 100mcg Fentanyl MPF injected via epidural. Pt tolerated well and comfortable with last contraction. Pt good resp effort with VSS
[2021-03-06] MEDS: ondansetron 2 mg/ML SDV 2 mL 4 MG IVP (01:05)
[2021-03-06] MEDS: lactated ringers 1,000 ML 999 ML IV (01:06)
--- NOTE | 2021-03-06 03:04 | PM.DELIVERY ---
Delivery Note: Date of delivery: March 06, 2021 Pre-delivery diagnoses: Term Post-delivery diagnoses: Term delivered Op report anesthesia: Epidural Delivering Physician: Iron Su MD Estimated blood loss (mL): 300 Pre-Delivery Course: HPI Ms. Bernal is a 25 year old 3 Para 1011 with an LMP of 06/05/2020 and an EDC of 03/12/2021 by LMPat 39+1 weeks EGA who has been receiving care from [facility]. Admitted to to labor and delivery for elective induction HPI: Received ap atpropriate care. Daily vitamins since two months prior to conception. labs have all been normal, including negative for HIV. She was found to negative for Group B Strep from screening at 36 weeks. She has gained approximately 43 lbs throughout the . She denies a history of HTN during . Glucose tolerance screening for gestational diabetes was negative. Delivery: The patient was noted to be complete and pushing, so was placed in the dorsal lithotomy position, prepped and draped in the usual sterile fashion for a vaginal delivery. Pt. Noted to have epidural anesthesia. The patient delivered a viable female infant at term weighing 3140 g with scores of 9 and 9 at one and five minutes, respectively. The vertex was delivered spontaneously over an intact perineum. The patient was asked to push and the head delivered spontaneously in the OLE position, over an intact perineum. A nuchal cord was checked and none noted. The anterior shoulder delivered easily and the posterior shoulder followed. The remainder of the was easily delivered and the oropharynx and nasopharynx was bulb suctioned. The infant was noted to have spontaneous cry and spontaneous movement of all four extremities. The cord was clamped x 2 and cut and noted to have 2 arteries and one vein. The was passed to the mother's abdomen where nursing personnel were in attendance. The placenta delivered intact spontaneously and the uterus was explored. 20 units of Pitocin was placed in the IV bag to firm the uterus. Examination of the cervix and vaginal vault did not reveal any lacerations. A vaginal pack was then placed. Examination of the perineum showed no lacerations. The vaginal pack was then removed. The patient tolerated this procedure well, and recovered in L&D with her infant in their LDR room. All sponge and needle counts were correct. Post-Delivery Status: Good and stable Coding Level of Care Code Acute Retail Parts Professional for Chg Nick
[2021-03-06] MEDS: prenatal vitamin Capsule 1 CAP PO (11:05)
[2021-03-06] MEDS: docusate sodium 100 mg Capsule PO ×2 (11:06→17:07)
[2021-03-06] MEDS: ibuprofen 800 mg tablet PO ×3 (11:06→20:58)
[2021-03-06] MEDS: HYDROcodone-acetaminophen 5-325 mg Tablet PO ×2 (13:12→19:38)
[2021-03-06 16:05] LABS: Hematocrit 30.9 % (37.0-47.0); Hemoglobin 10.5 g/dL (11.5-15.3); Mean Corpuscular Hemoglobin 32.1 pg (28.0-34.0); Mean Corpuscular Volume 94.5 fl (81-99); Mean Platelet Volume 13.2 fL (7.4-10.4); Red Blood Count 3.27 10^6/uL (4.1-5.3); Red Cell Distribution Width 13.1 % (12.1-15.1); White Blood Count 9.6 10^3/uL (4.0-10.0)
[2021-03-06 16:21] LABS: Platelet Count 116 10^3/cmm (130-400)
[2021-03-07] MEDS: HYDROcodone-acetaminophen 5-325 mg Tablet PO (01:54)
[2021-03-07] MEDS: prenatal vitamin Capsule 1 CAP PO (08:41)
[2021-03-07] MEDS: docusate sodium 100 mg Capsule PO (08:41)
[2021-03-07] MEDS: ibuprofen 800 mg tablet PO (08:41)
--- NOTE | 2021-03-07 10:27 | P.DS_ITS ---
Discharge Providers EMBROIDERY OPERATOR Date of Admission: 03/05/21 18:58 Date of Discharge: 03/07/21 Attending Provider at Admission: Iron Su MD Attending Provider at Discharge: Iron Su MD Primary Care Provider: SEGUNDO Mcghee Reason for Visit Reason for Visit: induction Hospital Course Hospital Course Ms. Bernal is a 25 year old 3 Para 1011 with an LMP of 06/05/2020 and an EDC of 03/12/2021 by LMP consistent with 8 week ultrasound, placing her at 39-1/7 weeks was admitted at [facility] labor and delivery for elective induction. She progressed to have an spontaneous vaginal delivery without complications. She delivered a term infant with Apgars of 8 and 9. She is day 2 afebrile and hemodynamically stable. Tolerating diet well. Ambulating without d ifficulty. Information Peripartum Data: Infant Delivery Method: Vaginal Physical Exam Narrative: EXAM NARRATIVE: GA; alert and oriented x 3 HEENT: normal Breasts: engorged Nipples - skin intact Lungs; clear to auscultation Heart: regular rhythm, no murmurs. Abd: Appropriately tender. BS+. Uterine fundus below umbilicus. No Fundal Tenderness. Perineum: normal lochia. Extremities: no edema, no cyanosis, no tenderness. Discharge Data Data Completed and Pending: Labs from last 24 hours 03/06/21 15:40 WBC 9.6 RBC 3.27 L Hgb 10.5 L Hct 30.9 L MCV 94.5 MCH 32.1 MCHC 34.0 RDW 13.1 Plt Count 116 L MPV 13.2 H Vitals: Last Vital Signs Temp 97.2 F L 03/06/21 05:50 Pulse 62 03/06/21 22:20 Resp 15 03/06/21 03:38 BP 111/71 03/06/21 22:20 Pulse Ox 100 03/06/21 02:40 Discharge Plan Discharge Patient Disposition: Home Condition: Stable Prescriptions: New acetaminophen 325 mg capsule 325 mg PO Q4H PRN (Reason: fever or pain) Qty: 60 RF: 0 ibuprofen 800 mg tablet 800 mg PO TID PRN (Reason: pain) Qty: 60 RF: 0 Colace 100 mg capsule 100 mg PO BID Qty: 60 RF: 0 Iron (ferrous sulfate) 325 mg (65 mg iron) tablet 325 mg PO BID Qty: 60 RF: 0 Continued Gummies 400 mcg-35 mg- 25 mg-5 mg tablet,chewable PO DAILY RF: 0 buspirone 5 mg tablet 5 mg PO BID Qty: 60 RF: 0 hydroxyzine pamoate [Vistaril] 25 mg capsule 25 mg PO Q6H PRN (Reason: anxiety) Qty: 14 RF: 0 Discharge Orders: Discharge Order (Routine); Ordered 03/07/21 Ordered By: Iron Su Referrals: Iron Su MD [Physician] - 6 Weeks Discharge Diet: Usual diet Discharge Activity: Increase activity as tolerated Patient Instructions: Caring for Your Baby (GEN), Bleeding (GEN), Vaginal Delivery (GEN), Your [place]'s Appearance (GEN), Opioid Safety Activity Restrictions/Additional Instructions: 1. Please call [facility] on next working day to make your appointment in 6 weeks. 2. Please stay home until you come back to the clinic on first post-operative check up. 3. Please follow instructions on your medications CAREFULLY. 4. If you have abdominal incision, do not cover it unless dressing is necessary because of drainage. OK to shower, but avoid bath. Leave steri-strips until they fall off. If they are still on one week after surgery, you may remove them. 5. If you had vaginal surgery or vaginal repair, Dr. Su may instruct you to take SITZ bath. 6. Yellow, blood tinged odorous vaginal discharge is usually normal after hysterectomy or vaginal surgeries. 7. No sexual intercourse, tampons, or douches until you are completely released from the post-operative care. 8. Avoid constipation by eating right and maybe using some Metamucil or Milk of Magnesia. 9. All prescription refills are given during the working hours. Please do no wait till it runs out. Call the clinic at [phone] before your medication runs out. The clinic will get in touch with your doctor to prescribe medications if necessary. 10. Please remain within 40 mile radius from our hospital because emergencies do happen now and then during the post-operative period. 11. If you have stairs at home, take one step at a time slowly and minimize the number of trips. It helps to stay in one floor for the next few days. No lifting except what you can lift by one hand until you are released from the post-operative care. 12. Driving is discouraged until you are well healed. It may be 3-4 weeks before you feel strong enough to drive. You should be able to turn and look through the rear window without pain and you should be able to push the brake pedal very hard without pain before you drive. No fast rules, but SAFETY should be your primary concern. DO NOT drive if you are on sedating medications such as narcotics. 13. Call the clinic (during working hours) to make urgent appointment or go to the Emergency room, if any of the following occurs: i. Vaginal bleeding becomes heavy, more than a period. ii. Incision becomes red and sore, or drains pus. iii. Your temperature is over 100.4 or you have chill. iv. IV site becomes red and swollen (a little ``knot?? is usually OK) v. Persistent nausea and vomiting vi. Persistent constipation or diarrhea vii. Rash or allergic reaction to medications. Discharge Attestations EMBROIDERY OPERATOR Time Spent in Discharge Care*: greater than 30 min Coding Level of Care Code Acute Spray Machine Tender for Skyler Romero
[2021-03-07 12:04] VITALS: BP 111/69; PULSE 61; RESP 18; TEMP 36.7
--- NOTE | 2021-03-08 13:29 | ANE.PACU2 ---
Inpatient post-anesthesia follow up: Airway intact: Yes Vital signs: Temperature 98.1 F Pulse Rate 61 Respiratory Rate 18 Blood Pressure 111/69 Pulse Oximetry 100 Oxygen Delivery Me thod Room Air Oxygen Flow Rate 10 Fraction of Inspir ed Oxygen Hydration adequate: Yes Nausea and vomiting: No Pain level: 2 Mental status: Baseline
== END 2021-03-07 12:25 | disposition home or self-care (01) | DRG 807 ==
PROVIDERS: Admitting Provider Obstetrics & Gynecology; PCP Nurse Practitioner Family; Visit Provider Obstetrics & Gynecology
DX: O99.12 Other diseases of the blood and blood-forming organs and certain disorders involving the immune mechanism complicating childbirth (principal); Z37.0 Single live birth; D69.6 Thrombocytopenia, unspecified; O99.344 Other mental disorders complicating childbirth; F41.8 Other specified anxiety disorders; Z3A.39 39 weeks gestation of pregnancy; O75.89 Other specified complications of labor and delivery; E80.4 Gilbert syndrome
CPT/HCPCS: 36415; 59025; 59409; 81000; 85025; 85027; 87635; J2405; J2795; J3010

== ENCOUNTER → 2021-04-27 09:30 | Outpatient (BNVA) | payer BC, MEDICAID, SELFPAY | PROVIDERS: PCP Nurse Practitioner Family; Visit Provider Obstetrics & Gynecology | DX: Z12.4 Encounter for screening for malignant neoplasm of cervix (principal); D64.9 Anemia, unspecified | CPT/HCPCS: 85025; 88175 ==

== ENCOUNTER → 2021-04-28 10:14 | Outpatient (BNVA) | payer OTHER, BC, MEDICAID, SELFPAY | PROVIDERS: PCP Nurse Practitioner Family; Visit Provider Obstetrics & Gynecology | DX: Z30.9 Encounter for contraceptive management, unspecified (principal) | CPT/HCPCS: 81025 ==

== ENCOUNTER → 2021-05-09 00:01 | Outpatient (BNVA) | payer OTHER, BC, MEDICAID, SELFPAY | PROVIDERS: PCP Nurse Practitioner Family; Visit Provider Nurse Practitioner | DX: Z20.822 Contact with and (suspected) exposure to COVID-19 (principal) | CPT/HCPCS: 87426; 87635 ==

== ENCOUNTER → 2021-06-08 11:40 | Outpatient (BNVA) | payer BC, MEDICAID, SELFPAY | PROVIDERS: PCP Nurse Practitioner Family; Visit Provider Obstetrics & Gynecology | DX: Z30.9 Encounter for contraceptive management, unspecified (principal) | CPT/HCPCS: 81025 ==

== ENCOUNTER → 2021-06-17 08:44 | Outpatient (BNVA) | payer BC, MEDICAID, SELFPAY | PROVIDERS: PCP Nurse Practitioner Family; Visit Provider Obstetrics & Gynecology | DX: Z30.431 Encounter for routine checking of intrauterine contraceptive device (principal) | CPT/HCPCS: 76830 ==

== ENCOUNTER → 2021-09-16 10:50 | Outpatient (BNVA) | payer BC, MEDICAID, SELFPAY | PROVIDERS: PCP Nurse Practitioner Family; Visit Provider Registered Nurse Neonatal Intensive Care | DX: J02.9 Acute pharyngitis, unspecified (principal) | CPT/HCPCS: 87880 ==

== ENCOUNTER 2022-01-24 21:10 | Emergency (ER) | payer OTHER, BC, MEDICAID, SELFPAY ==
[2022-01-24 21:15] VITALS: BP 136/63; PULSE 69; RESP 16; TEMP 36.6; O2SAT 97
--- NOTE | 2022-01-24 22:02 | ED_ITS ---
HPI - Abdominal Pain General: Chief Complaint: Abdominal Pain Stated Complaint: Abd Pain Time Seen by Provider: 01/24/22 21:35 Source: patient Mode of arrival: ambulatory Limitations: no limitations History of Present Illness: 26-year-old female who states that she has been having epigastric abdominal pain throughout the day. States that sharp in nature and much worse with eating states she had some nausea as well. She denies any fever states pain is currently a 4 out of 10. Denies any history of abdominal surgeries. Denies any diarrhea. Associated Symptoms: Reports nausea; Denies chills, diarrhea, dysuria, fever(s) and vomiting Review of Systems Const: Denies: fever(s), chills, body aches or change in appetite Eyes: Denies: blurry vision or eye discomfort ENMT: Denies: throat pain or dental pain Card: Denies: chest pain Resp: Denies: dyspnea GI: Reports: abdominal pain and nausea; Denies: vomiting or diarrhea : Denies: dysuria Musc: Denies: neck pain or back pain Skin/Breast: Denies: rash Neuro: Denies: headache(s) Psych: Denies: depression Alexis/Lymph: Denies: easy bruising All/Imm: Denies: urticaria PFSH ED PFSH: Medical History Anxiety and depression Diagnosed in her teenage years and she does do therapy. She has taken medication in the past but does not remember the name. [place] disease Diagnosed at the age of 16 and states that causes of fatty liver and she states that it is controlled with dietary changes. She follows up with her [facility] care provider. -Had no problems with her liver and her last . No pertinent past medical history Denies diabetes, asthma, hypertension, seizures, DVT/PE. PCP: Lexi Nichols Surgical History No pertinent past surgical history Family History Family/Other Breast cancer maternal great aunt--dx age 50 Colon cancer maternal great uncle--dx age 50's Hypertension maternal aunt Thyroid disease Paternal Uncle Father Stroke Heart disease Hypertension Grandfather Heart disease paternal and maternal Diabetes paternal Hypertension maternal Grandmother Hypertension maternal Denies family history of Ovarian cancer Hyperlipidemia Uterine cancer Social History Smoking and tobacco status: former smoker Quit status (tobacco): has quit using tobacco Year quit tobacco: 2020 Former quit date comment: 2 cig per day Alcohol intake: never Lives independently: Yes Household members: children Marital status: Single Number of children: 2 Pets and animals: No Physical Exam Const: COMMON NORMALS: no acute distress, patient oriented x3 and healthy appearing HENMT: COMMON NORMALS: normocephalic and atraumatic HEAD & SCALP: normocephalic and atraumatic Eye: COMMON NORMALS: Equal, round and reactive pupils present and EOMs intact bilaterally PUPIL: Yes Equal, round and reactive pupils present Neck/C-Spine: COMMON NORMALS: full ROM and supple Chest: COMMONS NORMALS: normal inspection of the chest and normal palpation of entire chest wall Resp: COMMON NORMALS: normal respiratory effort, No retractions, No use of accessory muscles and clear to auscultation bilaterally AUSCULTATION: clear to auscultation bilaterally Cardio: COMMON NORMALS: regular rate, regular rhythm and No murmurs present (Cardio) RATE: regular rate RHYTHM: regular rhythm GI: COMMON NORMALS: Normal to inspection, nondistended, normoactive bowel sounds present, Soft to palpation and no masses PALPATION: Yes Soft to palpation OTHER: mild epigastric tenderness Extremity: COMMON NORMALS: normal to inspection and full ROM Neuro: COMMON NORMALS: patient oriented x3, moves all extremities and no focal motor deficits Psych: COMMON NORMALS: mental status grossly normal, Normal thought process present and cooperative THOUGHT PROCESS: Normal thought process present Skin: COMMON NORMALS: no rashes or lesions noted and no wounds GENERAL SKIN EXAM: no rashes or lesions noted Course Vital Signs: Vital signs: Vital Signs Temperature 97.9 F 01/24/22 21:15 Pulse Rate 70 01/25/22 00:43 Respiratory Rate 18 01/25/22 00:43 Blood Pressure 103/64 01/25/22 00:43 Pulse Oximetry 99 01/25/22 00:43 Oxygen Delivery Me thod 01/24/22 23:38 MDM - Abdominal Pain Medical Decision Making Patient presents here with epigastric abdominal pain is improved here exam here is benign she has no signs of acute abdomen blood work here is all normal we will prescribe her Protonix she is to follow-up with surgery return if worsening she understands agrees to plan. Lab Data : 01/24/22 21:58 01/24/22 21:58 Labs/Radiology: Radiology Impressions Gallbladder Ultrasound 01/25/22 00:02 IMPRESSION: No acute findings. Laboratory Results WBC 5.5 10^3/uL (4.0-10.0) 01/24/22 21:58 RBC 4.06 10^6/uL (4.1-5.3) L 01/24/22 21:58 Hgb 12.2 g/dL (11.5-15.3) 01/24/22 21:58 Hct 37.1 % (37.0-47.0) 01/24/22 21:58 MCV 91.4 fl (81-99) 01/24/22 21:58 MCH 30.0 pg (28.0-34.0) 01/24/22 21:58 MCHC 32.9 g/dL (30.0-36.0) 01/24/22 21:58 RDW 12.1 % (12.1-15.1) 01/24/22 21:58 Plt Count 157 10^3/cmm (130-400) 01/24/22 21:58 MPV 12.4 fL (7.4-10.4) H 01/24/22 21:58 Neut % (Auto) 52.1 % 01/24/22 21:58 Lymph % (Auto) 39.8 % 01/24/22 21:58 [place] % (Auto) 4.9 % 01/24/22 21:58 Eos % (Auto) 2.5 % 01/24/22 21:58 Baso % (Auto) 0.5 % 01/24/22 21:58 Neut # (Auto) 2.86 10^3/uL (1.8-7.7) 01/24/22 21:58 Lymph # (Auto) 2.2 10^3/uL (0.8-4.8) 01/24/22 21:58 [place] # (Auto) 0.3 10^3/uL (0.2-0.9) 01/24/22 21:58 Eos # (Auto) 0.1 10^3/uL (0.0-0.8) 01/24/22 21:58 Baso # (Auto) 0.0 10^3/uL (0.0-0.1) 01/24/22 21:58 Nucleated RBC % (auto) 0 % 01/24/22 21:58 Nucleated RBCs # 0.0 /100WBC 01/24/22 21:58 Sodium 141 mmol/L (136-145) 01/24/22 21:58 Potassium 3.8 mmol/L (3.5-5.1) 01/24/22 21:58 Chloride 106 mmol/L (98-107) 01/24/22 21:58 Carbon Dioxide 26 mmol/L (22-29) 01/24/22 21:58 Anion Gap 12.8 (5-19) 01/24/22 21:58 BUN 8 mg/dL (6-20) 01/24/22 21:58 Creatinine 0.6 mg/dL (0.5-0.9) 01/24/22 21:58 GFR Calculation 120.8 mL/min (90-130) 01/24/22 21:58 Glucose 88 mg/dL (65-115) 01/24/22 21:58 Calculated Osmolality 290 mOsm/kg (285-295) 01/24/22 21:58 Calcium 8.9 mg/dL (8.5-10.5) 01/24/22 21:58 Total Bilirubin 1.3 mg/dL (0.15-1.2) H 01/24/22 21:58 AST 15 U/L (0-32) 01/24/22 21:58 ALT 9 U/L (0-33) 01/24/22 21:58 Alkaline Phosphatase 41 U/L (35-105) 01/24/22 21:58 Total Protein 6.3 g/dL (6.6-8.7) L 01/24/22 21:58 Albumin 4.1 g/dL (3.5-5.2) 01/24/22 21:58 Globulin 2.2 g/dL (1.3-4.6) 01/24/22 21:58 Lipase 54 U/L (13-60) 01/24/22 21:58 HCG, Qual Negative (Negative) 01/24/22 21:58 Urine Color Yellow (Yellow) 01/24/22 21:48 Urine Appearance Hazy (CLEAR) A 01/24/22 21:48 Urine pH 7 (5-7) 01/24/22 21:48 Ur Specific [place] 1.010 (1.005-1.030) 01/24/22 21:48 Urine Protein Neg (Negative) 01/24/22 21:48 Urine Glucose (UA) Norm (Normal) 01/24/22 21:48 Urine Ketones Negative (Negative) 01/24/22 21:48 Urine Blood Neg (Negative) 01/24/22 21:48 Urine Nitrate Negative (Negative) 01/24/22 21:48 Urine Bilirubin Neg (Negative) 01/24/22 21:48 Urine Urobilinogen Norm mg/dL (Negative) 01/24/22 21:48 Ur Leukocyte Esterase 1+ (Negative) H 01/24/22 21:48 Urine RBC 0-4 /hpf (0-2) H 01/24/22 21:48 Urine WBC 0-4 /hpf (0-5) H 01/24/22 21:48 Ur Squamous Epith Cells 0-4 /hpf (0-5) H 01/24/22 21:48 Amorphous Sediment Not Reportable 01/24/22 21:48 Urine Bacteria Trace /hpf (NONE) 01/24/22 21:48 Urine Mucus 1+ /hpf 01/24/22 21:48 Discharge Plan Discharge Patient Disposition: Home Clinical Impression: Abdominal pain Qualifiers: Abdominal location: epigastric Qualified Code(s): R10.13 - Epigastric pain Condition: Stable Prescriptions: New Protonix 40 mg tablet,delayed release (DR/EC) 40 mg PO DAILY Qty: 60 0RF ondansetron 4 mg tablet,disintegrating 4 mg PO Q6H PRN (Reason: nausea and vomiting) Qty: 14 0RF No Action Gummies 400 mcg-35 mg- 25 mg-5 mg tablet,chewable PO DAILY Mirena 20 mcg/24 hours (6 yrs) 52 mg intrauterine device 1 insert intrauterine .every 6 years Qty: 1 0RF Discharge Orders: Discharge ED (Routine); Ordered 01/25/22 Ordered By: Landen Herring Referrals: Karl Melendez MD [Physician] - 1-3 days Nichols,SEGUNDO Elliott [Primary Care Provider] - Discharge Diet: Advance as tolerated Discharge Activity: Resume usual activity Patient Instructions: Abdominal Pain (ED) Coding Level of Care Code ED Outreach Librarian for Chg Fwd Exam Comprehensive
[2022-01-24 22:12] VITALS: RESP 18
[2022-01-24] MEDS: sodium chloride 0.9% 1,000 ML 999 ML IV (22:12)
[2022-01-24] MEDS: HYDROmorphone 1 mg/mL INJ 1 mL 0.5 MG IVP (22:12)
[2022-01-24] MEDS: ondansetron 2 mg/ML SDV 2 mL 4 MG IVP (22:14)
[2022-01-24 22:18] LABS: Basophils % 0.5 %; Eosinophils # 0.1 10^3/uL (0.0-0.8); Eosinophils % 2.5 %; Hematocrit 37.1 % (37.0-47.0); Hemoglobin 12.2 g/dL (11.5-15.3); Lymphocytes # 2.2 10^3/uL (0.8-4.8); Lymphocytes % 39.8 %; Mean Corpuscular HGB Conc 32.9 g/dL (30.0-36.0); Mean Corpuscular Volume 91.4 fl (81-99); Mean Platelet Volume 12.4 fL (7.4-10.4); Monocytes # 0.3 10^3/uL (0.2-0.9); Monocytes % 4.9 %; Neutrophils # 2.86 10^3/uL (1.8-7.7); Neutrophils % 52.1 %; Nucleated Red Blood Cells % 0 %; Platelet Count 157 10^3/cmm (130-400); Red Blood Count 4.06 10^6/uL (4.1-5.3); Red Cell Distribution Width 12.1 % (12.1-15.1); White Blood Count 5.5 10^3/uL (4.0-10.0)
[2022-01-24 22:54] LABS: Alanine Aminotransferase 9 U/L (0-33); Albumin Level 4.1 g/dL (3.5-5.2); Alkaline Phosphatase 41 U/L (35-105); Aspartate Amino Transferase 15 U/L (0-32); Blood Urea Nitrogen 8 mg/dL (6-20); Calcium 8.9 mg/dL (8.5-10.5); Carbon Dioxide 26 mmol/L (22-29); Chloride 106 mmol/L (98-107); Creatinine Clr Calc Pharmacy 139.8796; Globulin 2.2 g/dL (1.3-4.6); Glomerular Filtration Rate 120.8 mL/min (90-130); Glucose 88 mg/dL (65-115); Lipase 54 U/L (13-60); Osmolality Calculated 290 mOsm/kg (285-295); Sodium 141 mmol/L (136-145); Total Bilirubin 1.3 mg/dL (0.15-1.2); Total Protein 6.3 g/dL (6.6-8.7)
[2022-01-24 22:56] LABS: Anion Gap 12.8 (5-19); HCG, Serum Qual Negative (Negative); Potassium 3.8 mmol/L (3.5-5.1)
[2022-01-24 23:03] LABS: Add Urine Microscopic? YES; Bilirubin Urine Neg (Negative); Blood Urine Neg (Negative); Glucose Urine UA Norm (Normal); Ketones Urine Negative (Negative); Leukocyte Esterase Urine 1+ (Negative); Nitrate Urine Negative (Negative); Protein Urine Neg (Negative); Urine Appearance Hazy (CLEAR); Urine Color Yellow (Yellow); Urobilinogen Urine Norm (Negative); pH Urine 7 (5-7)
[2022-01-24 23:05] LABS: Bacteria Urine TRACE /hpf; Mucus Urine 1+ /hpf; RBC Urine 0-4 /hpf (0-2); Squamous Epithelial Cell Urine 0-4 /hpf (0-5); WBC Urine 0-4 /hpf (0-5)
[2022-01-24 23:38] VITALS: BP 110/67; PULSE 77; RESP 18; O2SAT 97
--- NOTE | 2022-01-25 00:02 | USR_ITS ---
PROCEDURE INFORMATION: Exam: US Abdomen, Limited; Right Upper Quadrant Exam date and time: 01/25/2022 12:10 AM Age: 26 years old Clinical indication: Abdominal pain; Epigastric; Patient HX: Elevated tbili = 1.3. Normal ast, alt, alkphos. Low protein; Additional info: Abd pain TECHNIQUE: Imaging protocol: Real time ultrasound of the abdomen with image documentation. Limited exam focused on the right upper quadrant. COMPARISON: US gall bladder [id number] 09/22/2020 9:46 PM FINDINGS: Liver: Normal. No masses. Gallbladder: Normal. No gallstones. There is no gallbladder wall thickening. Biliary ducts: Normal. No stones. No dilation. Pancreas: Visualized pancreas is unremarkable. Right kidney: Normal. No mass. No hydronephrosis. US/US gall bladder [id number] IMPRESSION: No acute findings.
[2022-01-25 00:11] VITALS: BP 107/63; PULSE 70; RESP 18; O2SAT 100
[2022-01-25 00:43] VITALS: BP 103/64; PULSE 70; RESP 18; O2SAT 99
[2022-01-25] MEDS: lidocaine 2% viscous 15 ML, aluminum-mag hydrox-simethicon 30 ML, sucralfate oral liq 1 GM PO (01:07)
--- NOTE | 2022-01-25 01:16 | PC.NURSE ---
I asked pt if she had someone to drive her home and she stated no. I advised that I cannot give her IV Dilaudid if she is driving herself home. Wasted Dilaudid in sharps container with Aury Layton as witness
[2022-01-25 01:19] VITALS: BP 115/69; PULSE 69; RESP 18; O2SAT 99
--- NOTE | 2022-01-26 12:05 | DCPLANNER ---
Addendum entered by Shelley Ace 03/10/22 14:10: Patients appointment was cancelled Addendum entered by Shelley Ace 01/28/22 07:46: Patient has a follow up appointment scheduled for January at 3:[address] Melendez at general surgery. Clinic will call patient with appointment information. Original Note: rig manager had message to schedule a follow up appointment for patient with general surgery. rig manager sent patients information to the front office staff at general surgery. Patients information will be printed and reviewed. Clinic will call patient with appointment information.
== END 2022-01-25 01:20 | disposition home or self-care (01) ==
PROVIDERS: Emergency Provider Emergency Medicine; PCP Nurse Practitioner Family
DX: R10.13 Epigastric pain (principal); Z87.891 Personal history of nicotine dependence
CPT/HCPCS: 76705; 80053; 81001; 83690; 84703; 85025; 96361; 96374; 96375; 99285; J1170; J2405; J7030

== ENCOUNTER 2022-06-14 10:55 | Day surgery (SDC) | payer OTHER, BC, MEDICAID, SELFPAY ==
[2022-06-13 09:57] VITALS: BMI 21.9
[2022-06-14] VITALS (12 sets, daily range): BP systolic 107–119; BP diastolic 60–69; PULSE 51–76; RESP 9–18; TEMP 36.6–36.9; O2SAT 94–100
[2022-06-14 11:26] LABS: OR HCG Qualitative Urine Negative (Negative)
--- NOTE | 2022-06-14 11:33 | ANES.PREANE2 ---
Pre-Anesthetic Assessment Height/Weight: Height 1.73 m Weight 65.317 kg Temp Pulse Resp BP Pulse Ox O2 Del Method 98.2 F 70 18 119/68 100 06/14/22 11:11 06/14/22 11:11 06/14/22 11:11 06/14/22 11:11 06/14/22 11:11 06/14/22 11:14 Preop Diagnosis: sterilization consult Operation Date: 06/14/22 12:40 Proposed Procedures p Laparoscopic Salpingectomy(Bilateral) - Johnna Sanchez MD Familial anesthetic complications: None Was Beta Cody taken within 24 hours: N/A Was Clonidine taken within 24 hours: N/A Last intake: Intake Last Liquid Date 06/13/22 Last Liquid Time 19:00 Last Solid Date 06/13/22 Last Solid Time 19:00 Social No alcohol and No tobacco vapes Exam alert, oriented x 3, clear to auscultation bilaterally and regular rate & rhythm Airway Mallampati: Class II Dentition: full Hepatic gilbert's disease Anesthetic Plan ASA status: 2 Anesthesia: General Risk of > 500 ml blood loss (7ml/kg in children): No Medications/Allergies Home Medications Medication Instructions Recorded Confirmed Last Taken Type fluoxetine 10 mg capsule (Prozac) 10 mg PO DAILY 04/22/22 06/13/22 06/13/22 History Allergies Allergy/AdvReac Type Severity Reaction Status Date / Time Penicillins Allergy Severe rash, Verified 06/13/22 09:56 throat swells-can take Keflex [facility] Anesthesia Medical History Anxiety and depression Diagnosed in her teenage years and she does do therapy. She has taken medication in the past but does not remember the name. [place] disease Diagnosed at the age of 16 and states that causes of fatty liver and she states that it is controlled with dietary changes. She follows up with her primary care provider. -Had no problems with her liver and her last . No pertinent past medical history Denies diabetes, asthma, hypertension, seizures, DVT/PE. PCP: Lexi Nichols Surgical History No pertinent past surgical history Family History Family/Other Breast cancer maternal great aunt--dx age 50 Colon cancer maternal great uncle--dx age 50's Hypertension maternal aunt Thyroid disease Paternal Uncle Father Stroke Heart disease Hypertension Grandfather Heart disease paternal and maternal Diabetes paternal Hypertension maternal Grandmother Hypertension maternal Denies family history of Ovarian cancer Hyperlipidemia Uterine cancer Female Reproductive History Date of last menstrual period: 05/19/22 Data Anesthesia Cardiac Studies: Echocardiogram Ultrasound 09/15/20 Cardiac Event Monitor 11/30/21
[2022-06-14] MEDS: phenazopyridine 100 mg Tablet 200 MG PO (11:54)
[2022-06-14] MEDS: gabapentin 300 mg Capsule PO (11:55)
[2022-06-14] MEDS: CELEcoxib 200 mg Capsule 400 MG PO (11:55)
[2022-06-14] MEDS: acetaminophen 1,000 MG/100 ML PIGGYBACK 400 MG IV (11:56)
[2022-06-14] MEDS: sodium chloride 0.9% 1,000 ML 30 ML IV (11:56)
--- NOTE | 2022-06-14 13:43 | W.PM.OPSUD ---
Surgery/Procedure H&P Update DATE OF PROCEDURE: June 14, 2022 DATE H&P PERFORMED: 06/10/22 H&P UPDATE INFORMATION: I have reviewed H&P completed within last 30 days, I have examined patient prior to procedure and No changes to prior documentation PREOP DIAGNOSIS: sterilization consult PLANNED PROCEDURE: Operation Date: 06/14/22 12:40 Proposed Procedures p Laparoscopic Salpingectomy(Bilateral) - Johnna Sanchez MD Related Problem List Diagnoses (1) Request for sterilization:
[2022-06-14] MEDS: ceFAZolin 2,000 MG in sodium chloride 0.9% (plus) 50 ML 100 MG IV (13:47)
--- NOTE | 2022-06-14 14:45 | PM.OP ---
Operative Report Date of procedure: June 14, 2022 Pre-op diagnosis: Preop Diagnosis sterilization consult Post-op diagnosis: same Post-op findings: normal appearing uterus and ovaries Procedure done: Laparoscopic bilateral salpingectomy Specimens removed/disposition: bilateral fallopian tubes to pathology Surgeon: Johnna Sanchez Anesthesia: General Estimated blood loss (mL): 0 IV fluids (mL): 1,000 Urine output (mL): 100 Complications: none Findings: normal appearing uterus, tubes and ovaries Condition: stable Disposition: PACU Procedure: The patient was taken to the operating room where general anesthesia was administered and found to be adequate. She was prepped and draped in the normal sterile fashion in the dorsal lithotomy position in [facility]. A Cook catheter was placed. A weighted speculum was placed into the vagina and the anterior lip of the cervix grasped with a single-tooth tenaculum. A ZHello Curry uterine manipulator was placed. The gloves were changed and attention was turned to the laparoscopic portion of the case. A 5 mm infraumbilical incision was made. The 5 mm trocar was placed using the easy view trocar. Intra-abdominal placement was confirmed and CO2 gas was used to insufflate the abdomen. Using direct visualization and illumination of the abdominal wall, two 5 mm incisions were made low and lateral. One on the left and one on the right. The 5mm trochars were then placed under direct visualization. Using the uterine manipulator and the grasper, the fallopian tubes were identified. Using the laparoscopic cautery, the fallopian tube was clamped cauterized and cut. First on the right, then on the left. There was excellent hemostasis post removal of the bilateral tubes. Pictures were taken. All instruments were removed. The abdomen was desufflated. The incisions were closed with 4-0 Vicryl. 10 ml of 1/2% bupivicaine was used around the incisions. The patient tolerated the procedure well. Sponge lap and needle counts were correct x3. She was taken to the recovery room in stable condition.
--- NOTE | 2022-06-14 14:51 | PM.DCS ---
Discharge Providers Date of Admission: 06/14/22 Date of Discharge: June 14, 2022 Attending Provider at Admission: Dr. Sanchez Attending Provider at Discharge: Johnna Sanchez MD Diagnoses at Discharge Discharge Diagnosis (1) Request for sterilization: Status: Acute Reason for Visit Reason for Visit: encounter for sterilization Hospital Course Hospital Course The patient was admitted for surgery. She did well postoperatively and was ready for discharge. Physical Exam Urinary Catheter Management: Cook: Cath Placed During This Visit: yes Urinary Catheter Date of Insertion: 06/14/22 Urinary Catheter Time of Insertion: 14:10 Discharge Data Studies Completed and Pending Pending at discharge Category Date Time Status ES surgery / GI images Routine Exams 06/14/22 11:52 Ordered Urine Culture Routine Lab 06/14/22 11:10 Uncollected Pathology: Surgical [PTH] Routine Pth 06/14/22 14:41 Ordered Laboratory Results Urine HCG, Qual Negative (Negative) 06/14/22 11:08 Vitals Last Vital Signs Temp 98.2 F 06/14/22 11:11 Pulse 70 06/14/22 11:11 Resp 18 06/14/22 11:11 BP 119/68 06/14/22 11:11 Pulse Ox 100 06/14/22 11:11 O2 Del Method 06/14/22 11:14 Discharge Plan Discharge Patient Disposition: Home Condition: Stable Prescriptions: New hydrocodone-acetaminophen 5-325 mg tablet 1 tab PO Q4H Qty: 30 0RF Continued fluoxetine [Prozac] 10 mg capsule 10 mg PO DAILY Discharge Orders: Discharge Order (Routine); Ordered 06/14/22 Ordered By: Johnna Sanchez Discharge Attestations Time Spent in Discharge Care*: less than 30 min Quality Metrics Clinical Quality Measures [ No reported AMI, CVA or VTE this stay] Coding Level of Care Code Acute Chg FW DC note Diagnoses Request for sterilization Z30.2
--- NOTE | 2022-06-14 14:57 | SUR.PHASEI ---
1450 PT TO PACU 4 PT DOES NOT AWAKE TO TOUCH, GOOD RESP EFFORT NOTED SATS 100% ON8L MASK, MONITOR SR-SB WITH NO ECTOPY, IV TO RT WRIST #20 WITH NS 800ML UP AT KVO RATE, ID BRACELET TO LT WRIST, PT ID'D WITH 2 IDENTIFIERS, ABDOMEN SOFT WITH 3 SITES WITH SKIN GLUE D/I , BILAT SCDS ON . 1501 PT AWAKES AND ORIENTED TO SELF PLACE AND PROCEDURE, BUT QUICKLY BACK TO SLEEP VSS.
[2022-06-14] MEDS: fentaNYL 50 mcg/mL INJ 2mL IVP (15:05)
--- NOTE | 2022-06-14 15:15 | SUR.PHASEI ---
PT AWAKES AND MOANING, C/O OF PAIN OF 8 SEE MED GIVEN, PT QUICKLY BACK TO SLEEP PT AROUSED FREQUENTLY TO DEEP BREATHE, VSS PT TAKING OCC ICE CHIPS BUT SLEEPS MOSTLY, ABDOMEN SOFT NO CHANGES, HR 48-60
--- NOTE | 2022-06-14 15:18 | SUR.PHASEI ---
HOB AT 40 DEGREES PT AWAKES OFF AND ON, TAKING ICE CHIPS WTHOUT DIFFICULTY. VSS.
--- NOTE | 2022-06-14 15:54 | ANE.PACU2 ---
Inpatient post-anesthesia follow up: Airway intact: Yes Vital signs: Temperature 98.2 F Pulse Rate 55 Respiratory Rate 14 Blood Pressure 115/67 Pulse Oximetry 98 Oxygen Delivery Me thod Room Air Oxygen Flow Rate 8 Fraction of Inspir ed Oxygen Hydration adequate: Yes Nausea and vomiting: No Pain level: 1 Mental status: Baseline
[2022-06-14] MEDS: HYDROcodone-acetaminophen 5-325 mg Tablet 1 TAB PO (16:37)
== END 2022-06-14 17:10 | disposition home or self-care (01) ==
PROVIDERS: Anesthesiology; Visit Provider Obstetrics & Gynecology
PROC: (CPT 58661; principal; 2022-06-14 12:30)
DX: Z30.2 Encounter for sterilization (principal); F41.9 Anxiety disorder, unspecified; F32.A Depression, unspecified
CPT/HCPCS: 58661; 84703; 87086; 88302; J0131; J0690; J1100; J2001; J2250; J2405; J2704; J2710; J3010; J3490; J7030

== ENCOUNTER → 2022-06-17 14:03 | Outpatient (BNVA) | payer OTHER, BC, MEDICAID, SELFPAY | PROVIDERS: Visit Provider Obstetrics & Gynecology | DX: N93.9 Abnormal uterine and vaginal bleeding, unspecified (principal); R10.2 Pelvic and perineal pain | CPT/HCPCS: 85025 ==

== ENCOUNTER → 2022-11-15 10:19 | Outpatient (BNVA) | payer BC, SELFPAY | PROVIDERS: PCP Family Medicine; Visit Provider Family Medicine | DX: R53.81 Other malaise (principal); R53.83 Other fatigue; Z13.220 Encounter for screening for lipoid disorders; Z51.81 Encounter for therapeutic drug level monitoring | CPT/HCPCS: 80053; 80061; 84443; 85025 ==

== ENCOUNTER → 2022-12-26 09:28 | Outpatient (BNVA) | payer BC, SELFPAY | PROVIDERS: PCP Family Medicine; Visit Provider Obstetrics & Gynecology | DX: Z12.4 Encounter for screening for malignant neoplasm of cervix (principal) | CPT/HCPCS: 88175 ==

== ENCOUNTER 2023-05-29 15:01 | Outpatient (CLI) | payer BC, SELFPAY ==
--- NOTE | 2023-05-29 15:03 | XRR_ITS ---
PROCEDURE INFORMATION: Exam: XR Cervical Spine Exam date and time: 05/29/2023 3:28 PM Age: 28 years old Clinical indication: Neck pain; Additional info: Neck pain/headaches TECHNIQUE: Imaging protocol: Radiologic exam of the cervical spine. Views: 2 or 3 views. COMPARISON: CT cervical spin wo con* [id number] 08/19/2016 4:56 AM FINDINGS: Bones/joints: Cervical vertebral body heights appear maintained, as do disc spaces. Lateral view demonstrates mild reversal of the normal cervical curvature centered at the C3-4 level. Alignment is otherwise unremarkable. No fracture or significant osseous abnormality. Soft tissues: Prevertebral soft tissues appear unremarkable. Other findings: Dental hardware noted. XR/XR cervical spine 3V* [id number] IMPRESSION: Mild reversal of the normal cervical curvature at the C3-4 level. This can be associated with muscle spasm or tension. No acute findings otherwise.
== END 2023-05-29 15:02 | disposition home or self-care (01) ==
LOC: RAD 15:02
PROVIDERS: PCP Family Medicine; Visit Provider Family Medicine
DX: R51.9 Headache, unspecified (principal); M54.2 Cervicalgia
CPT/HCPCS: 72040

== ENCOUNTER 2023-06-18 08:57 | Emergency (ER) | payer BC, SELFPAY ==
[2023-06-18 09:05] VITALS: BP 111/74; PULSE 55; RESP 16; TEMP 36.5; O2SAT 98; BMI 21.2
[2023-06-18 09:51] LABS: HCG Qualitative Urine. Negative (Negative)
[2023-06-18] MEDS: ondansetron 2 mg/ML SDV 2 mL 4 MG IVP (09:55)
[2023-06-18 10:01] LABS: Add Urine Microscopic? NO; Charge for UA Resulting for Rev
[2023-06-18 10:01] LABS: Basophils % 0.9 %; Eosinophils # 0.1 10^3/uL (0.0-0.8); Eosinophils % 1.1 %; Hematocrit 38.8 % (36-47); Lymphocytes # 1.3 10^3/uL (0.8-4.8); Lymphocytes % 29.7 %; Mean Corpuscular HGB Conc 33.8 g/dL (30-55); Mean Corpuscular Hemoglobin 30.7 pg (27-33); Mean Corpuscular Volume 90.9 fl (85-98); Mean Platelet Volume 11.9 fL (7.4-10.4); Monocytes # 0.2 10^3/uL (0.2-0.9); Neutrophils # 2.77 10^3/uL (1.8-7.7); Neutrophils % 63.3 %; Nucleated Red Blood Cells % 0 %; Platelet Count 149 10^3/cmm (157-399); Red Blood Count 4.27 10^6/uL (3.85-5.65); Red Cell Distribution Width 12.3 % (12.1-15.1); White Blood Count 4.38 10^3/uL (3.29-11.43)
[2023-06-18 10:04] LABS: Blood Urine Neg (Negative); Glucose Urine UA Norm (Normal); Ketones Urine Negative (Negative); Nitrate Urine Negative (Negative); Protein Urine Neg (Negative); Urine Appearance Clear (CLEAR); Urine Color Yellow (Yellow); pH Urine 5 (5-7)
[2023-06-18 10:05] LABS: Bilirubin Urine Neg (Negative); Leukocyte Esterase Urine Negative (Negative); Urobilinogen Urine Norm (Negative)
[2023-06-18 10:09] LABS: Amphetamines Screen Urine Negative (Negative); Barbiturates Screen Urine Negative (Negative); Benzodiazepines Screen Urine Negative (Negative); Cocaine Screen Urine Negative (Negative); Opiate Screen Urine Negative (Negative); PCP Screen Urine Negative (Negative); THC Screen Urine Negative (Negative)
[2023-06-18 10:19] LABS: Alanine Aminotransferase 8 U/L (0-33); Albumin Level 4.3 g/dL (3.5-5.2); Alkaline Phosphatase 43 U/L (35-105); Anion Gap 11.9 (5-19); Aspartate Amino Transferase 13 U/L (0-32); Blood Urea Nitrogen 8 mg/dL (6-20); Carbon Dioxide 24 mmol/L (22-29); Chloride 105 mmol/L (98-107); Globulin 2.4 g/dL (1.3-4.6); Glomerular Filtration Rate 99.6 mL/min (90-130); Glucose 90 mg/dL (65-115); Lipase 33 U/L (13-60); Osmolality Calculated 282 mOsm/kg (285-295); Potassium 3.9 mmol/L (3.5-5.1); Sodium 137 mmol/L (136-145); Total Bilirubin 2.1 mg/dL (0.15-1.2); Total Protein 6.7 g/dL (6.6-8.7)
--- NOTE | 2023-06-18 10:20 | CTR_ITS ---
PROCEDURE INFORMATION: Exam: CT Abdomen And Pelvis With Contrast Exam date and time: 06/18/2023 10:33 AM Age: 28 years old Clinical indication: Abdominal pain; Epigastric; Prior surgery; Surgery date: 6+ months; Surgery type: Tubal; Additional info: Epigastric pain TECHNIQUE: Imaging protocol: Computed tomography of the abdomen and pelvis with contrast. Radiation optimization: All CT scans at this facility use at least one of these dose optimization techniques: automated exposure control; mA and/or kV adjustment per patient size (includes targeted exams where dose is matched to clinical indication); or iterative reconstruction. Contrast material: OMNI 350; Contrast volume: 100 ml; Contrast route: INTRAVENOUS (IV); COMPARISON: CT abdomen pelvis w con* [id number] 06/15/2020 5:24 PM RADIATION DOSE METRICS: Total DLP (mGy-cm): 484.2 FINDINGS: Lungs: Lung bases are clear. Liver: Normal. No mass. Gallbladder and bile ducts: Normal. No calcified stones. No ductal dilation. Pancreas: Unremarkable. Main pancreatic duct is not significantly dilated. Spleen: Upper limits of normal in size, unchanged. Adrenal glands: Normal. No mass. Kidneys and ureters: Kidneys are unremarkable. No calculi or hydronephrosis detected. Stomach and bowel: Unremarkable. No obstruction. No mucosal thickening. Appendix: No evidence of acute appendicitis. Intraperitoneal space: Unremarkable. No free air. No significant fluid collection. Vasculature: Enlargement of the splenic vein and prominent adjacent perisplenic collaterals unchanged raising possibility of portal hypertension. Lymph nodes: Unremarkable. No enlarged lymph nodes. Urinary bladder: Unremarkable as visualized. Reproductive: Unremarkable as visualized. Bones/joints: Unremarkable. No acute fracture. Soft tissues: Unremarkable. CT/CT abdomen pelvis w con* [id number] IMPRESSION: 1. No acute findings within the abdomen or pelvis. 2. Questionable portal hypertension upper abdomen unchanged in appearance from prior study.
[2023-06-18] MEDS: lidocaine 2% viscous 15 ML, aluminum-mag hydrox-simethicon 30 ML, sucralfate oral liq 1 GM PO (10:25)
[2023-06-18 11:07] VITALS: PULSE 57; RESP 14; O2SAT 99
--- NOTE | 2023-06-18 11:15 | ED_ITS ---
HPI - Abdominal Pain 2 General: Chief Complaint: Abdominal Pain Stated Complaint: abd pain Time Seen by Provider: 06/18/23 09:17 History of Present Illness: 28-year-old female presents emergency de partment complaints of epigastric burning and sharp epigastric pain that started last night. She states she has a history of stomach ulcers and was told approximately 5 years ago that she needed to stop eating spicy food and drinking Coca-Cola. She states she is continued to eat spicy food and states that this is most likely why she had her flareup. She states she has attempted to drink Pepto-Bismol without significant resolution. She denies nausea, vomiting, hematic emesis or hematochezia. She states the burning is a 5 out of 10 burning pain. Review of Systems 2 General: Reports: 10 or more systems reviewed and unremarkable except in HPI and below GI: Reports: abdominal pain PFSH ED 2 PFSH: Medical History Anxiety and depression Diagnosed in her teenage years and she does do therapy. She has taken medication in the past but does not remember the name. [place] disease Diagnosed at the age of 16 and states that causes of fatty liver and she states that it is controlled with dietary changes. She follows up with her primary care provider. -Had no problems with her liver and her last . No pertinent past medical history Denies diabetes, asthma, hypertension, seizures, DVT/PE. PCP: Lexi Nichols Request for sterilization Surgical History History of bilateral tubal ligation Family History Family/Other Breast cancer maternal great aunt--dx age 50 Colon cancer maternal great uncle--dx age 50's Hypertension maternal aunt Thyroid disease Paternal Uncle Father Stroke Heart disease Hypertension Grandfather Heart disease paternal and maternal Diabetes paternal Hypertension maternal Grandmother Hypertension maternal Denies family history of Ovarian cancer Hyperlipidemia Uterine cancer Social History Smoking and tobacco/nicotine status: current every day tobacco/nicotine user e- cigarettes E-Cigarette Details: vaporizer device E-cig/vape details: Uses about 15 times a day Alcohol intake: never Substance/Drug Use: never Current occupation: Works at [employer] Physical Exam 2 Narrative: EXAM NARRATIVE: Constitutional: the patient appears well nourished and of normal development. Vital signs as documented. No acute distress at present. Alert and oriented-to person, place, time and situation. Head, eyes, ears, nose, mouth, throat: Normocephalic, atraumatic. Pupils-equal, round, reactive to light. No scleral icterus. Normal-appearing external ears. Normal appearing nasal turbinates, no drainage. No obvious oral lesions, posterior oropharynx without erythema or exudates. Neck: Supple, trachea is midline, no lymphadenopathy, no jugular venous distension, thyromegaly, or carotid bruits. Carotid upstrokes are brisk bilaterally. Lungs: clear to auscultation to all lung villanueva. Symmetrical rise and fall of chest, no obvious signs of increased work of breathing at present. Cardiac: Regular rate and rhythm, positive S1, S2. No murmurs, rubs or gallops that I can appreciate Abdomen: Soft, epigastric area tender to palpation, normal active bowel sounds to all quadrants. No palpable masses, no organomegaly and abdominal bruits. Extremities: 2+ pulses in the upper extremities that are equal bilaterally, 2+ pulses in the lower extremities that are equal bilaterally. Non-edematous. Moves all extremities well, sensation to all extremities are noted. Skin: Warm, dry, intact. Course 2 Vital Signs: Vital signs: Vital Signs Temperature 97.7 F 06/18/23 09:05 Pulse Rate 57 L 06/18/23 11:07 Respiratory Rate 14 06/18/23 11:07 Blood Pressure 111/74 06/18/23 09:05 Pulse Oximetry 99 06/18/23 11:07 Oxygen Delivery Me thod Room Air 06/18/23 11:07 MDM - Abdominal Pain Medical Decision Making Physical exam completed and documented I will obtain a CT scan, provide a GI cocktail as well as a CBC and CMP and antinausea medication. Medical Records I reviewed the patient's medical records. Lab Data I reviewed the patient's lab results. 06/18/23 09:53 06/18/23 09:53 Labs/Radiology: Radiology Impressions Abdomen/Pelvis CT 06/18/23 10:20 IMPRESSION: 1. No acute findings within the abdomen or pelvis. 2. Questionable portal hypertension upper abdomen unchanged in appearance from prior study. Laboratory Results WBC 4.38 10^3/uL (3.29-11.43) 06/18/23 09:53 RBC 4.27 10^6/uL (3.85-5.65) 06/18/23 09:53 Hgb 13.10 g/dL (11.27-16.99) 06/18/23 09:53 Hct 38.8 % (36-47) 06/18/23 09:53 MCV 90.9 fl (85-98) 06/18/23 09:53 MCH 30.7 pg (27-33) 06/18/23 09:53 MCHC 33.8 g/dL (30-55) 06/18/23 09:53 RDW 12.3 % (12.1-15.1) 06/18/23 09:53 Plt Count 149 10^3/cmm (157-399) L 06/18/23 09:53 MPV 11.9 fL (7.4-10.4) H 06/18/23 09:53 Neut % (Auto) 63.3 % 06/18/23 09:53 Lymph % (Auto) 29.7 % 06/18/23 09:53 [place] % (Auto) 5.0 % 06/18/23 09:53 Eos % (Auto) 1.1 % 06/18/23 09:53 Baso % (Auto) 0.9 % 06/18/23 09:53 Neut # (Auto) 2.77 10^3/uL (1.8-7.7) 06/18/23 09:53 Lymph # (Auto) 1.3 10^3/uL (0.8-4.8) 06/18/23 09:53 [place] # (Auto) 0.2 10^3/uL (0.2-0.9) 06/18/23 09:53 Eos # (Auto) 0.1 10^3/uL (0.0-0.8) 06/18/23 09:53 Baso # (Auto) 0.0 10^3/uL (0.0-0.1) 06/18/23 09:53 Nucleated RBC % (auto) 0 % 06/18/23 09:53 Nucleated RBCs # 0.0 /100WBC 06/18/23 09:53 Sodium 137 mmol/L (136-145) 06/18/23 09:53 Potassium 3.9 mmol/L (3.5-5.1) 06/18/23 09:53 Chloride 105 mmol/L (98-107) 06/18/23 09:53 Carbon Dioxide 24 mmol/L (22-29) 06/18/23 09:53 Anion Gap 11.9 (5-19) 06/18/23 09:53 BUN 8 mg/dL (6-20) 06/18/23 09:53 Creatinine 0.7 mg/dL (0.5-0.9) 06/18/23 09:53 GFR Calculation 99.6 mL/min (90-130) 06/18/23 09:53 Glucose 90 mg/dL (65-115) 06/18/23 09:53 Calculated Osmolality 282 mOsm/kg (285-295) L 06/18/23 09:53 Calcium 9.0 mg/dL (8.5-10.5) 06/18/23 09:53 Total Bilirubin 2.1 mg/dL (0.15-1.2) H 06/18/23 09:53 AST 13 U/L (0-32) 06/18/23 09:53 ALT 8 U/L (0-33) 06/18/23 09:53 Alkaline Phosphatase 43 U/L (35-105) 06/18/23 09:53 Total Protein 6.7 g/dL (6.6-8.7) 06/18/23 09:53 Albumin 4.3 g/dL (3.5-5.2) 06/18/23 09:53 Globulin 2.4 g/dL (1.3-4.6) 06/18/23 09:53 Lipase 33 U/L (13-60) 06/18/23 09:53 HCG, Qual Negative (Negative) 06/18/23 09:45 Urine Color Yellow (Yellow) 06/18/23 09:45 Urine Appearance Clear (CLEAR) 06/18/23 09:45 Urine pH 5 (5-7) 06/18/23 09:45 Ur Specific [place] 1.010 (1.005-1.030) 06/18/23 09:45 Urine Protein Neg (Negative) 06/18/23 09:45 Urine Glucose (UA) Norm (Normal) 06/18/23 09:45 Urine Ketones Negative (Negative) 06/18/23 09:45 Urine Blood Neg (Negative) 06/18/23 09:45 Urine Nitrate Negative (Negative) 06/18/23 09:45 Urine Bilirubin Neg (Negative) 06/18/23 09:45 Urine Urobilinogen Norm mg/dL (Negative) 06/18/23 09:45 Ur Leukocyte Esterase Negative (Negative) 06/18/23 09:45 Urine Opiates Screen Negative ng/mL (Negative) 06/18/23 09:45 Ur Barbiturates Screen Negative ng/mL (Negative) 06/18/23 09:45 Ur Phencyclidine Scrn Negative ng/mL (Negative) 06/18/23 09:45 Ur Amphetamines Screen Negative ng/mL (Negative) 06/18/23 09:45 U Benzodiazepines Scrn Negative ng/mL (Negative) 06/18/23 09:45 Urine Cocaine Screen Negative ng/mL (Negative) 06/18/23 09:45 U Marijuana (THC) Screen Negative ng/mL (Negative) 06/18/23 09:45 All radiology interpretation(s) finalized by discharge Discharge Plan Discharge Patient Disposition: Home Clinical Impression: Gastritis, Abdominal pain Condition: Stable Prescriptions: New pantoprazole 40 mg tablet,delayed release (DR/EC) 40 mg PO DAILY 56 Days Qty: 60 0RF sucralfate [Carafate] 1 gram tablet 1 g PO TID 56 Days Qty: 168 0RF No Action fluoxetine 10 mg tablet 10 mg PO DAILY Qty: 30 3RF Discharge Orders: Discharge ED (Routine); Ordered 06/18/23 Ordered By: Yovany Vila Referrals: Mychal Gonzalez MD [Primary Care Provider] - Discharge Diet: Advance as tolerated Discharge Activity: Resume usual activity Patient Instructions: Abdominal Pain (ED), Opioid Safety, Pain Management Activity Restrictions/Additional Instructions: Activity Restrictions/Additional Instructions: Thank you for choosing [facility] for your healthcare needs today. Please realize that you were seen in the Emergency Department and that we are providing you with an emergency medical screening exam and this may not be a complete and all inclusive of all the testing and or medical work-up that you may need to determine your ailment or severity of your illness. It is very important that you follow-up as instructed with your Primary care provider or Specialist for additional evaluation and to discuss your medical treatment plan. You may return to the Emergency Department should you have concerns or if your condition changes or worsens in any way. Coding Level of Care Code ED Chairman Of The Board for Skyler Romero
== END 2023-06-18 11:28 | disposition home or self-care (01) ==
PROVIDERS: Emergency Provider Internal Medicine; PCP Family Medicine
DX: K29.70 Gastritis, unspecified, without bleeding (principal); F17.290 Nicotine dependence, other tobacco product, uncomplicated
CPT/HCPCS: 74177; 80053; 80306; 81003; 81025; 83690; 85025; 96374; 99285; J2405; Q9967

== ENCOUNTER 2024-01-04 16:07 | Emergency (ER) | payer BC, SELFPAY ==
--- NOTE | 2024-01-04 16:08 | ECG_ITS ---
[facility] Test Date: 2024-01-04 Pat Name: Batsheva Thomas Department: Room: Gender: Female [employer]: : 1995 Requested By: Landen Herring Order Number: [id number] Keily MD: Vinay Adams M.D. Measurements Intervals [place] Rate: 70 P: 59 [place]: 120 QRS: 59 QRSD: 84 T: 46 QT: 384 QTc: 415 Interpretive Statements SINUS RHYTHM POSSIBLE RIGHT VENTRICULAR CONDUCTION DELAY [RSR (QR) IN V1/V2] No previous ECG available for comparison Electronically Signed On 01-04-2024 16:53:25 CDT by Vinay Adams M.D. [email or web address]
[2024-01-04 16:15] VITALS: BP 117/85; PULSE 75; TEMP 36.4; O2SAT 100; BMI 21.9
--- NOTE | 2024-01-04 16:16 | XR_ITS ---
WS: [id number] Examination: XR chest 1V portable [id number] Reason for Exam: sob Date: January 04, 2024 Comparison: November 09, 2017 Findings: The heart is normal in size. The mediastinum is not widened There is no effusion or consolidation. XR/XR chest 1V portable [id number] Impression: No acute lung process is identified.
--- NOTE | 2024-01-04 16:22 | ED_ITS ---
HPI - Anxiety 2 General: Chief Complaint: Anxiety Stated Complaint: chest pain, short of breath since noon Time Seen by Provider: 01/04/24 16:16 Source: patient Mode of arrival: ambulatory Limitations: no limitations History of Present Illness: 28-year-old female states she had a hist ory of anxiety attacks in the past states she has felt like she has been having panic attacks throughout the day today starting this morning. She states she has felt like her breathing is shallow and quick and cannot get a breath and has had some pain in her chest as well. Patient appears anxious here she has some mild pain currently she denies any abdominal pain denies any nausea vomiting she had a tubal ligation in the past. Associated symptoms: Reports chest pain; Deny chills, fever(s), nausea or vomiting Related Data Previous Rx's Medication Instructions Recorded naproxen 500 mg tablet 500 mg PO BID PRN pain #60 tabs 06/20/23 fluoxetine 10 mg tablet 10 mg PO DAILY #30 tabs 09/20/23 hydroxyzine pamoate 25 mg capsule 25 mg PO Q8H PRN anxiety #20 caps 01/04/24 (Vistaril) ondansetron 4 mg disintegrating 4 mg PO Q6H PRN nausea and 01/04/24 tablet vomiting #14 tabs Allergies Allergy/AdvReac Type Severity Reaction Status Date / Time Penicillins Allergy Severe rash, Verified 01/04/24 16:21 throat swells-can take Keflex amoxicillin [From Amoxil] Allergy ALGY-Anaphy Verified 01/04/24 16:21 laxis Review of Systems 2 Const: Denies: fever(s) or chills ENMT: Denies: throat pain or dental pain Card: Reports: chest pain Resp: Reports: dyspnea GI: Denies: abdominal pain, nausea, vomiting or diarrhea : Denies: dysuria Musc: Denies: neck pain or back pain Skin/Breast: Denies: rash Psych: Reports: anxiety PFSH ED 2 PFSH: Medical History Request for sterilization No pertinent past medical history Denies diabetes, asthma, hypertension, seizures, DVT/PE. PCP: Lexi Nichols Anxiety and depression Diagnosed in her teenage years and she does do therapy. She has taken medication in the past but does not remember the name. [place] disease Diagnosed at the age of 16 and states that causes of fatty liver and she states that it is controlled with dietary changes. She follows up with her primary care provider. -Had no problems with her liver and her last . Surgical History History of bilateral tubal ligation Family History Family/Other Breast cancer maternal great aunt--dx age 50 Colon cancer maternal great uncle--dx age 50's Hypertension maternal aunt Thyroid disease Paternal Uncle Father Stroke Heart disease Hypertension Grandfather Heart disease paternal and maternal Diabetes paternal Hypertension maternal Grandmother Hypertension maternal Denies family history of Ovarian cancer Hyperlipidemia Uterine cancer Social History (Updated 01/02/24 @ 08:30 by Benny Grossman) Smoking and tobacco/nicotine status: current every day tobacco/nicotine user Physical Exam 2 Const: COMMON NORMALS: patient oriented x3 GENERAL APPEARANCE: anxious HENMT: COMMON NORMALS: normocephalic and atraumatic HEAD & SCALP: n ormocephalic and atraumatic Eye: COMMON NORMALS: conjunctivae normal CONJUNCTIVA: Yes conjunctivae normal Neck/C-Spine: COMMON NORMALS: full ROM and supple Chest: COMMONS NORMALS: normal inspection of the chest and normal palpation of entire chest wall Resp: COMMON NORMALS: normal respiratory effort, No retractions, No use of accessory muscles and clear to auscultation bilaterally AUSCULTATION: clear to auscultation bilaterally Cardio: COMMON NORMALS: regular rate, regular rhythm and No murmurs present (Cardio) RATE: regular rate RHYTHM: regular rhythm Extremity: COMMON NORMALS: normal to inspection and full ROM Neuro: COMMON NORMALS: patient oriented x3, moves all extremities and no focal motor deficits Psych: COMMON NORMALS: mental status grossly normal, Normal thought process present and cooperative THOUGHT PROCESS: Normal thought process present Skin: COMMON NORMALS: no rashes or lesions noted and no wounds GENERAL SKIN EXAM: no rashes or lesions noted Course 2 Vital Signs: Vital signs: Vital Signs Temperature 97.5 F L 01/04/24 16:15 Pulse Rate 75 01/04/24 16:15 Blood Pressure 117/85 01/04/24 16:15 Pulse Oximetry 100 01/04/24 16:15 Oxygen Delivery Me thod Room Air 01/04/24 16:15 MDM - Anxiety Medical Decision Making Patient presents here with dyspnea likely anxiety attack she had an anxiety attack here as well she is improved after Ativan will prescribe Vistaril she had some nausea we will prescribe her Zofran as well her troponin here is negative CT angio showed no PE she stable for discharge she is to follow-up with PCP and return if worsening. Medical Records I reviewed the patient's medical records. Lab Data I reviewed the patient's lab results. 01/04/24 16:30 01/04/24 16:30 Radiology Impressions Chest X-Ray 01/04/24 16:16 Impression: No acute lung process is identified. Chest CTA 01/04/24 16:58 IMPRESSION: No acute findings. Laboratory Results WBC 7.39 10^3/uL (3.29-11.43) 01/04/24 16:30 RBC 4.74 10^6/uL (3.85-5.65) 01/04/24 16:30 Hgb 14.10 g/dL (11.27-16.99) 01/04/24 16:30 Hct 41.6 % (36-47) 01/04/24 16:30 MCV 87.8 fl (85-98) 01/04/24 16:30 MCH 29.7 pg (27-33) 01/04/24 16:30 MCHC 33.9 g/dL (30-55) 01/04/24 16:30 RDW 11.7 % (12.1-15.1) L 01/04/24 16:30 Plt Count 180 10^3/cmm (157-399) 01/04/24 16:30 MPV 11.7 fL (7.4-10.4) H 01/04/24 16:30 Neut % (Auto) 75.8 % 01/04/24 16:30 Lymph % (Auto) 18.5 % 01/04/24 16:30 [place] % (Auto) 4.3 % 01/04/24 16:30 Eos % (Auto) 0.7 % 01/04/24 16:30 Baso % (Auto) 0.4 % 01/04/24 16:30 Neut # (Auto) 5.60 10^3/uL (1.8-7.7) 01/04/24 16:30 Lymph # (Auto) 1.4 10^3/uL (0.8-4.8) 01/04/24 16:30 [place] # (Auto) 0.3 10^3/uL (0.2-0.9) 01/04/24 16:30 Eos # (Auto) 0.1 10^3/uL (0.0-0.8) 01/04/24 16:30 Baso # (Auto) 0.0 10^3/uL (0.0-0.1) 01/04/24 16:30 Nucleated RBC % (auto) 0 % 01/04/24 16:30 Nucleated RBCs # 0.0 /100WBC 01/04/24 16:30 D-Dimer 0.69 ug/mLFEU (0-0.59) H 01/04/24 16:30 Sodium 138 mmol/L (136-145) 01/04/24 16:30 Potassium 4.0 mmol/L (3.5-5.1) 01/04/24 16:30 Chloride 104 mmol/L (98-107) 01/04/24 16:30 Carbon Dioxide 19 mmol/L (22-29) L 01/04/24 16:30 Anion Gap 19.0 (5-19) 01/04/24 16:30 BUN 10 mg/dL (6-20) 01/04/24 16:30 Creatinine 0.7 mg/dL (0.5-0.9) 01/04/24 16:30 GFR Calculation 99.6 mL/min (90-130) 01/04/24 16:30 Glucose 102 mg/dL (65-115) 01/04/24 16:30 Calculated Osmolality 285 mOsm/kg (285-295) 01/04/24 16:30 Calcium 9.7 mg/dL (8.5-10.5) 01/04/24 16:30 Total Bilirubin 1.8 mg/dL (0.15-1.2) H 01/04/24 16:30 AST 16 U/L (0-32) 01/04/24 16:30 ALT 12 U/L (0-33) 01/04/24 16:30 Alkaline Phosphatase 48 U/L (35-105) 01/04/24 16:30 Troponin T Baseline < 6 ng/L (0-10) 01/04/24 16:30 NT-Pro-B Natriuret Pep 71 pg/mL (0-125) 01/04/24 16:30 Total Protein 7.2 g/dL (6.6-8.7) 01/04/24 16:30 Albumin 4.9 g/dL (3.5-5.2) 01/04/24 16:30 Globulin 2.3 g/dL (1.3-4.6) 01/04/24 16:30 All radiology interpretation(s) finalized by discharge EKG Data EKG 1: I personally reviewed and interpreted this EKG as follows: EKG interpretation date: 01/04/24 EKG interpretation time: 16:17 Interpretation: Chest X-Ray 01/04/24 16:16 Impression: No acute lung process is identified. Chest CTA 01/04/24 16:58 IMPRESSION: No acute findings. nsr hr [address] elevation qrs 84 qtc 405 Other EKG comments: Chest X-Ray 01/04/24 16:16 Impression: No acute lung process is identified. Chest CTA 01/04/24 16:58 IMPRESSION: No acute findings. Discharge Plan Discharge Patient Disposition: Home Clinical Impression: Acute anxiety, Dyspnea Condition: Stable Prescriptions: New ondansetron 4 mg tablet,disintegrating 4 mg PO Q6H PRN (Reason: nausea and vomiting) Qty: 14 0RF Vistaril 25 mg capsule 25 mg PO Q8H PRN (Reason: anxiety) Qty: 20 0RF No Action naproxen 500 mg tablet 500 mg PO BID PRN (Reason: pain) Qty: 60 3RF fluoxetine 10 mg tablet 10 mg PO DAILY Qty: 30 3RF Discharge Orders: Discharge ED (Routine); Ordered 01/04/24 Ordered By: Landen Herring Referrals: Mychal Gonzalez MD [Primary Care Provider] - 4-7 days Discharge Diet: Advance as tolerated Discharge Activity: Resume usual activity Patient Instructions: Dyspnea (ED), Anxiety (ED) Coding Level of Care Code ED Inspecting Supervisor for Chg Nick
[2024-01-04] MEDS: LORazepam 2 mg/mL INJ 1 mL 1 MG IVP (16:34)
[2024-01-04 16:41] LABS: Basophils % 0.4 %; Eosinophils # 0.1 10^3/uL (0.0-0.8); Eosinophils % 0.7 %; Hematocrit 41.6 % (36-47); Lymphocytes # 1.4 10^3/uL (0.8-4.8); Lymphocytes % 18.5 %; Mean Corpuscular HGB Conc 33.9 g/dL (30-55); Mean Corpuscular Hemoglobin 29.7 pg (27-33); Mean Corpuscular Volume 87.8 fl (85-98); Mean Platelet Volume 11.7 fL (7.4-10.4); Monocytes # 0.3 10^3/uL (0.2-0.9); Monocytes % 4.3 %; Neutrophils % 75.8 %; Nucleated Red Blood Cells % 0 %; Platelet Count 180 10^3/cmm (157-399); Red Blood Count 4.74 10^6/uL (3.85-5.65); Red Cell Distribution Width 11.7 % (12.1-15.1); White Blood Count 7.39 10^3/uL (3.29-11.43)
[2024-01-04 16:57] LABS: D Dimer 0.69 ug/mLFEU (0-0.59)
--- NOTE | 2024-01-04 16:58 | CTR_ITS ---
PROCEDURE INFORMATION: Exam: CTA Chest With Contrast Exam date and time: 01/04/2024 5:04 PM Age: 28 years old Clinical indication: Shortness of breath; Additional info: SOB TECHNIQUE: Imaging protocol: Computed tomographic angiography of the chest with contrast. Exam focused on the arteries. 3D rendering (Not supervised by radiologist): MIP and/or 3D reconstructed images were created by the technologist. Radiation optimization: All CT scans at this facility use at least one of these dose optimization techniques: automated exposure control; mA and/or kV adjustment per patient size (includes targeted exams where dose is matched to clinical indication); or iterative reconstruction. Contrast material: OMNI 350; Contrast volume: 75 ml; Contrast route: INTRAVENOUS (IV); COMPARISON: CR XR chest 1V portable [id number] 01/04/2024 4:39 PM RADIATION DOSE METRICS: Total DLP (mGy-cm): 213 FINDINGS: Pulmonary arteries: Normal. No pulmonary emboli. Aorta: Unremarkable. No aortic aneurysm. No aortic dissection. Lungs: Unremarkable. No consolidation. No masses. Pleural spaces: Unremarkable. No pneumothorax. No pleural effusion. Heart: Unremarkable. No cardiomegaly. No pericardial effusion. Lymph nodes: Unremarkable. No enlarged lymph nodes. Bones/joints: Unremarkable. No acute fracture. Soft tissues: Unremarkable. CT/CT angio chest PE protcl [id number] IMPRESSION: No acute findings.
[2024-01-04 16:59] LABS: Troponin(5th) Baseline < 6 ng/L (0-10)
[2024-01-04] MEDS: iohexol 350 mg/mL 500 mL Btl (per mL) IV (17:09)
[2024-01-04 17:29] LABS: Alanine Aminotransferase 12 U/L (0-33); Albumin Level 4.9 g/dL (3.5-5.2); Alkaline Phosphatase 48 U/L (35-105); Aspartate Amino Transferase 16 U/L (0-32); Blood Urea Nitrogen 10 mg/dL (6-20); Calcium 9.7 mg/dL (8.5-10.5); Carbon Dioxide 19 mmol/L (22-29); Chloride 104 mmol/L (98-107); Creatinine Clr Calc Pharmacy 117.7934; Globulin 2.3 g/dL (1.3-4.6); Glomerular Filtration Rate 99.6 mL/min (90-130); Glucose 102 mg/dL (65-115); NT Pro B Type Natriuretic Pept 71 pg/mL (0-125); Osmolality Calculated 285 mOsm/kg (285-295); Sodium 138 mmol/L (136-145); Total Bilirubin 1.8 mg/dL (0.15-1.2); Total Protein 7.2 g/dL (6.6-8.7)
[2024-01-04] MEDS: ondansetron 2 mg/ML SDV 2 mL 4 MG IVP (17:56)
[2024-01-04 18:01] VITALS: BP 110/62; PULSE 61; O2SAT 98
== END 2024-01-04 18:02 | disposition home or self-care (01) ==
PROVIDERS: Emergency Provider Emergency Medicine; PCP Family Medicine
DX: F41.9 Anxiety disorder, unspecified (principal); R06.00 Dyspnea, unspecified; Z72.0 Tobacco use
CPT/HCPCS: 71045; 71275; 80053; 83880; 84484; 85025; 85378; 93005; 96374; 96375; 99285; J2060; J2405; Q9967

== ENCOUNTER → 2024-11-12 13:22 | Outpatient (BNVA) | payer OTHER, SELFPAY | PROVIDERS: PCP Family Medicine; Visit Provider Family Medicine | DX: Z00.00 Encounter for general adult medical examination without abnormal findings (principal); R17 Unspecified jaundice; Z51.81 Encounter for therapeutic drug level monitoring | CPT/HCPCS: 80053; 82247; 82248; 85025 ==

== ENCOUNTER 2024-11-25 09:43 | Outpatient (CLI) | payer OTHER, SELFPAY ==
--- NOTE | 2024-11-25 09:45 | USR_ITS ---
PROCEDURE INFORMATION: Exam: US Duplex Artery or Vein of the Abdominal and/or Reproductive Organs, Limited Liver Exam date and time: 11/25/2024 10:06 AM Age: 29 years old Clinical indication: Abdominal pain; Localized; Right upper quadrant (ruq); Additional info: Ruq pain TECHNIQUE: Imaging protocol: Real-time duplex ultrasound scan of the arterial or venous flow with color Doppler flow and spectral waveform analysis with image documentation. Limited Duplex exam focused on the liver and portal venous system. Duplex exam was performed to evaluate for vascular conditions. COMPARISON: US gall bladder [id number] 01/25/2022 12:10 AM FINDINGS: Portal venous: The portal vein is patent with hepatopetal flow. Spectral waveform demonstrates normal respiratory phasicity. PROCEDURE INFORMATION: Exam: US Abdomen; Limited Exam date and time: 11/25/2024 10:06 AM Age: 29 years old Clinical indication: Abdominal pain; Localized; Right upper quadrant (ruq); Additional info: Ruq pain TECHNIQUE: Imaging protocol: Real time ultrasound of the abdomen with image documentation. Limited exam focused on the region of clinical interest. COMPARISON: US gall bladder [id number] 01/25/2022 12:10 AM FINDINGS: Gallbladder: Gallbladder wall measures 2 mm. No gallstones. Negative sonographic Frank's sign. Biliary ducts: Common bile duct measures 2 mm. Right kidney: Right kidney measures 10.3 cm. No hydronephrosis. US/US gall bladder [id number] IMPRESSION: Unremarkable duplex of the portal vein. IMPRESSION: No acute findings.
== END 2024-11-25 09:44 | disposition home or self-care (01) ==
LOC: RAD 09:43
PROVIDERS: PCP Family Medicine; Visit Provider Family Medicine
DX: R17 Unspecified jaundice (principal); R10.11 Right upper quadrant pain; G89.29 Other chronic pain
CPT/HCPCS: 76705

== ENCOUNTER → 2024-12-30 16:41 | Outpatient (BNVA) | payer OTHER, SELFPAY | PROVIDERS: PCP Family Medicine; Visit Provider Obstetrics & Gynecology | DX: Z87.42 Personal history of other diseases of the female genital tract (principal) | CPT/HCPCS: 84146; 84439; 84443; 85025 ==

== ENCOUNTER → 2025-01-06 08:00 | Outpatient (BNVA) | payer OTHER, SELFPAY | PROVIDERS: PCP Family Medicine; Visit Provider Obstetrics & Gynecology | DX: N83.201 Unspecified ovarian cyst, right side (principal) | CPT/HCPCS: 76830 ==